=== PATIENT | male | born 1945 | race Hispanic/Latino ===

== ENCOUNTER 2018-02-07 13:42 | Inpatient (IN) | payer MEDICARE, OTHER ==
[2018-02-07 14:32] LABS: #Basophils 0.1 thou/uL (0.0-0.2); #Eosinphils 0.1 thou/uL (0.0-0.7); #Monocytes 0.7 thou/uL (0.11-0.59); #Neutrophils 7.1 thou/uL (1.40-6.50); %Basophils 0.7 % (0.0-1.0); %Eosinophils 1.5 % (0.0-10.0); %Lymphocytes 10.9 % (21.0-51.0); %Monocytes 7.4 % (0.0-10.0); %Neutrophils 79.6 % (42.0-75.0); Hemoglobin 11.3 g/dL (14.0-18.0); Mean Corpuscular Hemoglobin 32.2 pg (27.0-31.0); Mean Corpuscular Volume 97.6 fL (78.0-98.0); Mean Platelet Volume 7.8 fL (7.4-10.4); Platelet Count 241 thou/uL (130-400); RBC Distribution Width 15.3 % (11.5-14.5); White Blood Cell (WBC) Count 8.9 thou/uL (4.8-10.8)
[2018-02-07 14:50] LABS: ALT (SGPT) 17 U/L (8-55); AST (SGOT) 18 U/L (5-34); Alkaline Phosphatase 112 U/L (40-150); Anion Gap 18 mmol/L (10-20); BUN (Urea Nitrogen) 20 mg/dL (8.4-25.7); Bilirubin, Total 0.5 mg/dL (0.2-1.2); Calc. Creatinine Clearance 0 mL/min (70-130); Calcium 9.6 mg/dL (7.8-10.44); Carbon Dioxide 25 mmol/L (23-31); Chloride 100 mmol/L (98-107); Estimated GFR-MDRD 9; Globulin 3.7 g/dL (2.4-3.5); Glucose 193 mg/dL (80-115); Potassium 4.5 mmol/L (3.5-5.1); Protein, Total 7.7 g/dL (5.8-8.1); Sodium 138 mmol/L (136-145)
--- NOTE | 2018-02-07 17:37 | RAD ---
THREE VIEWS OF THE RIGHT GREAT TOE 02/07/18 COMPARISON: None. HISTORY: Diabetes, toe infection. FINDINGS: There is soft tissue swelling at the distal aspect of the great toe. There are foci of subcutaneous g as in this region. In addition, there is cortical bone loss involving the distal aspect of the first distal phalanx suspicious for osteomyelitis. No acute fracture or evidence of dislocation is seen. IMPRESSION: Soft tissue swelling with punctate foci of soft tissue gas along the distal aspect of the great toe c onsistent with gas forming infection. Cortical bone loss involves the distal aspect of the first dist al phalanx evidence of osteomyelitis. Further assessment via contrast enhanced MRI suggested. POS: [facility]
[2018-02-07] MEDS ORDERED: Sodium Chloride 0.9% 100 ML ONE (18:19)
[2018-02-07] MEDS ORDERED: Piperacillin/Tazobactam 3.375 GM VIAL ONE (18:19)
--- NOTE | 2018-02-07 19:27 | RAD ---
CHEST ONE VIEW UPRIGHT PORTABLE: History: 72-year-old male with history of black toe. Patient is diabetic. Right great toe infection. Comparison: 10-11-17 FINDINGS: Post underlying sternotomy. Heart size is normal. The lungs are clear. No pneumonia, edema, or pleura l effusion. IMPRESSION: No acute intrathoracic disease. POS: [facility]
[2018-02-07] MEDS ORDERED: Acetaminophen 650 MG Suppository PR PRN (23:35)
[2018-02-07] MEDS ORDERED: Ondansetron ODT 4 MG TAB PO PRN (23:35)
[2018-02-07] MEDS ORDERED: Ondansetron PF 4 MG/2 ML Vial IVP PRN (23:35)
[2018-02-07] MEDS ORDERED: Loratadine 10 MG TAB PO PRN (23:35)
[2018-02-07] MEDS ORDERED: Acetaminophen 325 MG TAB PO PRN (23:35)
[2018-02-07] MEDS ORDERED: Atorvastatin Calcium 40 MG TAB PO SCH (23:45)
[2018-02-07] MEDS ORDERED: Famotidine 20 MG TAB PO SCH (23:45)
[2018-02-07] MEDS ORDERED: Atorvastatin Calcium 20 MG TAB PO SCH (23:45)
[2018-02-07 23:54] VITALS: BMI 23.1
[2018-02-07] MEDS ORDERED: Metoprolol Tartrate 50 MG TAB PO SCH (23:59)
[2018-02-07] MEDS ORDERED: rOPINIRole HCl 2 MG TAB PO SCH (23:59)
--- NOTE | 2018-02-08 01:54 | HP ---
PRIMARY CARE PHYSICIAN: Dr. Brown at the [facility]. CHIEF COMPLAINT: Bleeding wound on toe. HISTORY OF PRESENT ILLNESS: This is a 72-year-old male with end-stage renal disease, on dialysis, also with longstanding diabetes, who comes in complaining of a lesion to his right great toe. He noted a, what looked like, blood blister. It looked like his toe had been pinched about 4 months ago, though he did not feel any pain or does not remember injuring it. He then noted that his toenail started to come off about 2 months ago, when he pulled that and then the lesion started bleeding and that continued to ooze and bleed after that. He called the [facility] and tried to set up an appointment, but they were unable to give him until the end of February. Then, on Monday of this week, he had some chills sitting in his car, that resolved and then for the last two days, he noticed a black eschar still with continuos bleeding from underneath and at the tip of his right great toe and then his toe started to become tender all over, then today he noticed redness covering his right great toe and then creeping up nursing home up his forefoot, so he called the [facility] and they told him to come into the emergency room. In the ER here, he was noted to have cellulitis and they did an x-ray, which showed possible osteomyelitis of his right great toe tip. Dr. Sanders was consulted for Ortho, and he said that the patient will be given antibiotics and he will see him in the morning. PAST MEDICAL HISTORY: 1. Coronary artery disease. 2. Cardiomyopathy with ejection fraction of 40% to 45%. 3. 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 4. Hypertension. 5. Hyperlipidemia. 6. 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 7. Restless legs syndrome. 8. End-stage renal disease, on dialysis. 9. Episode of atrial fibrillation at the end of last year, resolved with medication, now on oral anticoagulant. PAST SURGICAL HISTORY: 1. Coronary artery bypass grafting x5 vessels in 2011. 2. Cholecystectomy. 3. Partial colectomy for atypical polyp. 4. 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 FAMILY HISTORY: Father had congestive heart failure. Mother had diabetes mellitus. SOCIAL HISTORY: The patient smoked for 16 years, quit in 1976. No history of alcohol or drugs. He is . ALLERGIES: NO KNOWN DRUG ALLERGIES. CURRENT MEDICATIONS: 1. Aspirin 325 mg daily. 2. Renagel 2400 mg three times a day. 3. Lipitor 40 mg daily. 4. Ropinirole 2 mg at bedtime. 5. Glipizide 2.5 mg daily. 6. Vitamin D3 of 1000 units daily. 7. Procardia XL 60 mg daily. 8. Lopressor 50 mg twice a day. 9. Diltiazem CD 120 mg daily. 10. Eliquis 2.5 mg twice a day. 11. Claritin 10 mg daily. REVIEW OF SYSTEMS: CONSTITUTIONAL: See HPI. EYES: No change in his vision in his right eye. ENT: He has chronic congestion noted. No drainage. No sore throat. CARDIOVASCULAR: No chest pain. No palpitations or racing heart. PULMONARY: No coughing, wheezing, or shortness of breath. GASTROINTESTINAL: No abdominal pain. No nausea or vomiting. He has chronic diarrhea since his partial colectomy. GENITOURINARY: Produces very little urine, but no dysuria or hematuria. MUSCULOSKELETAL: See HPI. SKIN: See HPI. No other rashes. NEUROLOGIC: No numbness, tingling, or focal weakness. PHYSICAL EXAMINATION: VITAL SIGNS: Blood pressure 167/70, pulse 79, respirations 16, temperature 98.4, and O2 saturation 96% on room air. GENERAL: This is a well-developed, well-nourished male, in no apparent distress. HEENT: Left eye with absent cornea. Right eye, his pupil is round and reactive to light. Oropharynx clear without lesions, erythema, or exudate. NECK: Supple. No lymphadenopathy. No thyroid nodules or enlargement. HEART: Regular rate and rhythm. No murmurs, rubs, or gallops. LUNGS: Clear to auscultation bilaterally. No wheezes, crackles, or rhonchi. ABDOMEN: Soft, nontender to palpation. Normoactive bowel sounds. No hepatosplenomegaly or other masses. EXTREMITIES: The patient has a large eschar in the superior tip of his right great toe. His nail is missing. The middle of the eschar has an ulcerated area with some bloody mucoid discharge. The eschar is about a quarter size. There is surrounding blanching erythema and warmth going the length of the toe and then spreading up the medial aspect of the forefoot about nursing home up the forefoot. There is mild tenderness to deep tissue palpation of the entire toe. He does have some intact light touch sensation throughout the foot and toes. His dorsalis pedis pulse is weakly palpable. The patient's remainder of the exam is normal except with his AV fistula on his left forearm, which does have a palpable thrill. SKIN: See extremity exam above. No other lesions noted. NEUROLOGIC: Intact sensation in all extremities. Normal reflexes. Normal strength. No facial droop. LABORATORY DATA: CBC with normal white blood cell count, hemoglobin 11, hematocrit 34, and platelet count 241. Complete metabolic panel is notable only for a creatinine of 6.01 and a glucose of 193. His C-reactive protein was elevated at 7.39. I did review the toe x-ray done in the emergency room along with the radiologist's report. It shows soft tissue swelling with punctate foci of soft tissue gas along the distal aspect of the right great toe consistent with gas-forming infection. There is also cortical bone loss at the distal aspect of the first phalanx, evidence of osteomyelitis. I also reviewed the chest x-ray done in the emergency room along with the radiologist's report. This shows no acute intrathoracic disease, just has old sternotomy wires. ASSESSMENT: 1. Diabetic toe infection with likely osteomyelitis. The patient has gotten a dose of vancomycin and Zosyn in the emergency room. We will continue Zosyn and then he can get vancomycin with dialysis. Dr. Sanders has been consulted and will see the patient in the morning. He may end up needing surgical debridement and excision of the infected bone. At this point, he does not have any evidence of sepsis or systemic infection. 2. End-stage renal disease. Dr. Susan Bell will be consulted to continue dialysis in the hospital. 3. Diabetes mellitus, type 2. We will put the patient on fingersticks and insulin sliding scale and also resume his oral hypoglycemics. It appears that since he has had end-stage renal disease, his diabetes control is improved. He does not need a lot of medicines at this time. 4. Coronary artery disease with history of coronary artery bypass grafting. We will continue the patient's aspirin and other heart medications. 5. Hypertension. Resume the patient's antihypertensives. 6. History of paroxysmal atrial fibrillation. We will continue his rate control medications, but we will hold his Eliquis for now in case if the patient needs surgical intervention and that could be resumed depending on Dr. Sanders's evaluation. 7. Code status had been discussed with the patient. He is a full code. Should he be incapacitated, he states that his would be his medical decision maker. Her name is Deepthi Azar. Job ID: [id number]
[2018-02-08] MEDS: Piperacillin/Tazobactam 2.25 GM in Sodium Chloride 0.9% 100 ML IVPB SCH ×2 (05:41→18:20)
[2018-02-08 06:57] LABS: #Eosinphils 0.1 thou/uL (0.0-0.7); #Lymphocytes 1.1 thou/uL (1.20-3.40); #Monocytes 0.7 thou/uL (0.11-0.59); #Neutrophils 6.8 thou/uL (1.40-6.50); %Basophils 0.2 % (0.0-1.0); %Eosinophils 1.7 % (0.0-10.0); %Lymphocytes 12.8 % (21.0-51.0); %Monocytes 7.9 % (0.0-10.0); %Neutrophils 77.4 % (42.0-75.0); Hemoglobin 10.3 g/dL (14.0-18.0); Mean Corpuscular HGB CONC 33.8 g/dL (32.0-36.0); Mean Corpuscular Hemoglobin 32.9 pg (27.0-31.0); Mean Corpuscular Volume 97.4 fL (78.0-98.0); Mean Platelet Volume 7.9 fL (7.4-10.4); Platelet Count 214 thou/uL (130-400); Red Blood Cell (RBC) Count 3.13 mill/uL (4.70-6.10); White Blood Cell (WBC) Count 8.7 thou/uL (4.8-10.8)
[2018-02-08 07:12] LABS: Anion Gap 17 mmol/L (10-20); BUN (Urea Nitrogen) 28 mg/dL (8.4-25.7); Calc. Creatinine Clearance 8 mL/min (70-130); Calcium 8.8 mg/dL (7.8-10.44); Carbon Dioxide 23 mmol/L (23-31); Chloride 100 mmol/L (98-107); Estimated GFR-MDRD 7; Glucose 97 mg/dL (80-115); Potassium 4.6 mmol/L (3.5-5.1); Sodium 135 mmol/L (136-145)
[2018-02-08] MEDS ORDERED: Prevnar 13-Val Conj/PF 0.5 ML SYRINGE IM ONE (09:00)
[2018-02-08] MEDS: Sevelamer Carbonate 800 MG TAB PO SCH ×3 (09:05→18:20)
[2018-02-08] MEDS: NIFEdipine XL 60 MG TAB PO SCH (09:05)
[2018-02-08] MEDS: glipiZIDE 5 MG TAB PO SCH (09:06)
[2018-02-08] MEDS: Metoprolol Tartrate 50 MG TAB PO SCH ×3 (09:06→20:47)
[2018-02-08] MEDS: Aspirin 325 MG TAB PO SCH (09:06)
--- NOTE | 2018-02-08 14:24 | HP ---
HISTORY OF PRESENT ILLNESS: Presley Azar is a 72-year-old male, on dialysis, end-stage renal disease, dialyzing Monday, Monday, and Monday. The patient presents with right great toe wound eschar, that on x-ray shows osteomyelitis of the distal phalanx and gas in the soft tissues. He has cellulitis over the dorsum of his foot. I was consulted this morning to see him. He is admitted last night to the Hospitalist Service. He is a miz-caigpnj-rzwbakmpo diabetic type 2, end-stage renal disease, has a history of coronary artery disease, undergoing bypass surgery several years ago. He has been on dialysis for more than three years, dialyzing using a left [facility] fistula. This was placed at the [facility]. ALLERGIES: NONE. HABITS: Tobacco, none for many years. Alcohol, none for many years. MEDICATIONS: At home he takes; 1. Eliquis 2.5 mg at bedtime. 2. Multivitamins daily. 3. Atorvastatin daily. 4. Aspirin 81 mg daily. 5. Loratadine 10 mg p.r.n. 6. Metoprolol 25 mg b.i.d. 7. Ropinirole 2 mg p.o. at bedtime p.r.n. 8. Glipizide 2.5 mg . 9. Renagel. 10. Procardia. 11. Cardizem CD. Eliquis has been held on admission. PAST SURGICAL HISTORY: Coronary artery bypass grafting several years ago, cardiac stress test at the [facility] last year was normal. Coronary artery bypass grafting five vessels 2011, laparoscopic cholecystectomy, partial colectomy, and atypical polyp surgery. PAST MEDICAL HISTORY: Coronary artery disease, asymptomatic; diabetes mellitus type 2; hypertension; hyperlipidemia; prior stroke in 2013 with left hemiplegia, mostly resolved; restless legs syndrome; end-stage renal disease, on maintenance dialysis, utilizing a left [facility] fistula; history of atrial fibrillation, on anticoagulation oral therapy. PHYSICAL EXAMINATION: VITAL SIGNS: 5 feet, 226 pounds, 23 BMI. HEAD, EARS, EYES, NOSE AND THROAT: Unremarkable. LUNGS: Clear to auscultation. CARDIAC: Regular rate and rhythm without murmur or gallop. ABDOMEN: Soft and nontender. Palpable femoral, popliteal, dorsalis pedis pulses. EXTREMITIES: Right great toe reveals an eschar over the distal tip. He has cellulitis over the great toe extending over the dorsum of the foot up to the ankle. Medications currently, Zosyn. ASSESSMENT AND PLAN: 1. Cellulitis of right foot with osteomyelitis, right great toe, phalanx. Recommend amputation of the right great toe, healing by secondary intention. He will need to be in the hospital free days assuring the cellulitis over the dorsum of his foot resolves. He can receive intravenous antibiotics with dialysis. 2. End-stage renal disease, on dialysis, seen by Dr. Davis. Kaiser fistula, left arm, functional. 3. Coronary artery disease, stable. 4. Anticoagulation for atrial fibrillation. Job ID: [id number]
[2018-02-08] MEDS ORDERED: Midazolam HCl 2 mg/2 ml Vial ONE (14:27)
[2018-02-08] MEDS ORDERED: Acetaminophen 500 MG TAB PO PRN (14:58)
[2018-02-08] MEDS ORDERED: traMADol HCl 50 MG TAB PO PRN ×2 (14:58)
[2018-02-08] MEDS ORDERED: HOLD VANCOMYCIN FOR LEVEL >20 FS SCH (15:15)
[2018-02-08] MEDS ORDERED: Vancomycin HCl 750 MG in Sodium Chloride 0.9% 250 ML 250 ML IVPB SCH (15:15)
[2018-02-08] MEDS ORDERED: Vancomycin HCl 500 MG in Sodium Chloride 0.9% 100 ML IVPB SCH (15:15)
[2018-02-08] MEDS ORDERED: Vancomycin HCl 1 GM in Premix Bag 1 BAG IVPB SCH (15:15)
[2018-02-08] MEDS ORDERED: Vancomycin HCl 250 MG in Sodium Chloride 0.9% 100 ML IVPB SCH (15:15)
[2018-02-08] MEDS ORDERED: Vancomycin HCl 1.25 GM in Sodium Chloride 0.9% 250 ML 250 ML IVPB SCH (16:00)
[2018-02-08] MEDS ORDERED: PROPOFOL 200 MG/20 ML VIAL ONE (19:05)
[2018-02-08] MEDS ORDERED: Ropivacaine 0.5% HCl/PF (150 MG/30 ML VIAL) ONE (19:28)
--- NOTE | 2018-02-08 20:23 | OP ---
DATE OF PROCEDURE: 02/08/2018 PREOPERATIVE DIAGNOSIS: Diabetic infection right great toe with osteomyelitis in distal phalanx with probable peripheral artery disease (palpable popliteal pulse, Dopplerable dorsalis pedis, high ankle non-Dopplerable dorsalis pedis of the dorsum of the foot with weak Dopplerable only posterior tibial pulse). ANESTHESIA: TIVA, regional. DESCRIPTION OF PROCEDURE: The patient was taken to the operating room, where under regional anesthesia and intravenous sedation, right foot was prepared with Betadine and draped in routine fashion. Amputation of the right great toe through the proximal phalanx carried out with a fishmouth incision. Cautery was not utilized, but there was some bleeding in the soft tissues. Toe through the proximal phalanx and mid phalanx amputated with a bone cutter, resecting approximately with rongeurs and irrigated. Connective tissue debrided sharply. Wound Care arrived to place a wound VAC. The patient tolerated the procedure well. Job ID: [id number]
[2018-02-08] MEDS: Atorvastatin Calcium 40 MG TAB PO SCH (20:46)
[2018-02-08] MEDS: Famotidine 20 MG TAB PO SCH (20:46)
[2018-02-08] MEDS: rOPINIRole HCl 2 MG TAB PO SCH (20:47)
[2018-02-08] MEDS ORDERED: Vancomycin HCl 1.5 GM in Sodium Chloride 0.9% 250 ML 300 ML IVPB SCH (21:00)
--- NOTE | 2018-02-08 22:57 | CON ---
DATE OF CONSULTATION: HISTORY OF PRESENT ILLNESS: Mr. Azar is a 72-year-old gentleman who is on chronic renal dialysis with diabetes mellitus, who presented with a right great toe gangrene. He underwent toe amputation by Dr. Richmond this evening. Historically, he has no claudication or rest pain. He was noted at dialysis to have a wound on his toe, which has progressed to where he had gangrene and he came to the emergency department. He has no previous peripheral vascular history. He has no history of abdominal aortic aneurysm. He is status post coronary artery bypass grafting in approximately 5 years ago. PAST MEDICAL HISTORY: 1. Coronary artery disease. 2. Depressed left ventricular ejection fraction of approximately 40%. 3. Diabetes mellitus. 4. Hypertension. 5. Dyslipidemia. 6. End-stage renal disease, on hemodialysis. 7. History of atrial fibrillation that has resolved with medical treatment. PAST SURGICAL HISTORY: 1. Coronary bypass grafting x5 in 2011. 2. Cholecystectomy. 3. Partial colectomy for atypical polyp. 4. Left corneal removal due to diabetes. SOCIAL HISTORY: He quit smoking in 1976. He does not use alcohol or drugs. ALLERGIES: NONE. CURRENT MEDICATIONS: Noted. REVIEW OF SYSTEMS: A 10-point review of systems is performed, is negative except as above. PHYSICAL EXAMINATION: GENERAL: This is a diminutive gentleman, resting comfortably in bed, post right great toe amputation. HEENT: His right sclera is nonicteric. 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 Oropharynx is moist. NECK: Supple without bruit. CHEST: Clear bilaterally. HEART: Rhythm is regular. ABDOMEN: Soft and nontender. EXTREMITIES: He has a dressing on his right foot. VASCULAR: He has palpable radial and femoral pulses bilaterally. On the right, I can get excellent triphasic Doppler signal in the posterior tibial and a biphasic signal in the dorsalis pedis. On the left, he has triphasic dorsalis pedis and posterior tibial artery signals. ASSESSMENT AND PLAN: This is a 72-year-old gentleman, status post right great toe amputation, on hemodialysis with history of diabetes mellitus. He has no previous peripheral vascular history or symptomatology. This is more than likely microscopic disease post cut on his foot and infection. This should be able to heal with local treatment with the level of blood flow that he has into his foot. If he has further problems, please do not hesitate to call us back. Job ID: [id number]
--- NOTE | 2018-02-08 23:20 | CON ---
DATE OF CONSULTATION: CONSULTING PHYSICIAN: Susan Bell MD REQUESTING PHYSICIAN: Dr. Maurice. REASON FOR CONSULTATION: Need for maintenance hemodialysis. IMPRESSION: 1. End-stage renal disease, hemodialysis dependent on Monday, Monday, and Monday. No indication for emergent dialysis. 2. Right great toe osteomyelitis/cellulitis. 3. Diabetes mellitus type 2. PLAN: 1. The patient is to be dialyzed in accordance to his schedule of Monday, Monday, and Monday with ultrafiltration as tolerated by hemodynamics. 2. On broad-spectrum antibiotic treatment per the primary team. 3. Further management will be dependent on the clinical course. HISTORY OF PRESENT ILLNESS: This is a 72-year-old [place] gentleman with end-stage renal disease on a Monday, Monday, and Monday schedule, who presented here because of nonhealing right great toe infection, that imaging studies are highly suggestive of osteomyelitis with resultant neighboring cellulitis. The patient is now being admitted for further management and the need for maintenance hemodialysis necessitated this Renal consultation. PAST MEDICAL HISTORY: Significant for end-stage renal disease, on hemodialysis; coronary artery disease, status post bypass surgery; dyslipidemia; hypertension; diabetes; CVA; and history of atrial fibrillation. MEDICATIONS: Reviewed and as documented on [employer]. ALLERGIES: NO KNOWN DRUG ALLERGIES. FAMILY HISTORY: Not significant related to presenting illness. SOCIAL HISTORY: The patient is , he is [place]. Denies alcohol, tobacco, or illicit drug use. REVIEW OF SYSTEMS: As documented in the body of the history. All other systems were reviewed and found not to be significantly related to the presenting illness. PHYSICAL EXAMINATION: VITAL SIGNS: The patient is noted to be afebrile with a temperature of 98, pulse 73, respiratory rate of 20, O2 saturation of 100% with the blood pressure of 121/44. HEENT: Unremarkable. Moist oral mucosa. NECK: Supple. No conjunctival injection. No icterus. CARDIOVASCULAR: First and second heart sounds were heard. RESPIRATORY: Clear to auscultation. DIGESTIVE: Revealed a benign abdomen with positive bowel sounds. EXTREMITIES: No peripheral edema. SKIN: Showed redness around the dorsum of the foot in keeping with cellulitis. LYMPHATICS: No peripheral lymphadenopathy. SUMMARY: A 72-year-old gentleman with end-stage renal disease, hemodialysis dependent on a Monday, Monday, and Monday schedule, who presented here with nonhealing osteomyelitis. Thank you for this consultation. We will follow with you. Job ID: [id number]
[2018-02-09] MEDS: Piperacillin/Tazobactam 2.25 GM in Sodium Chloride 0.9% 100 ML IVPB SCH ×2 (04:59→17:09)
[2018-02-09] MEDS: Aspirin 325 MG TAB PO SCH (07:53)
[2018-02-09] MEDS: glipiZIDE 5 MG TAB PO SCH (07:57)
[2018-02-09] MEDS: Sevelamer Carbonate 800 MG TAB PO SCH ×3 (07:57→16:35)
[2018-02-09] MEDS: NIFEdipine XL 60 MG TAB PO SCH (07:58)
[2018-02-09] MEDS: Metoprolol Tartrate 50 MG TAB PO SCH ×2 (07:58→20:34)
[2018-02-09 11:32] LABS: Vancomycin, Random 23.3 ug/mL (See Comment)
--- NOTE | 2018-02-09 14:49 | PDOC.PN ---
- Subjective Encounter Start Date: 02/09/18 Encounter Start Time: 14:45 Subjective: f/u s/p amputation of R great toe POD #1 on current Zosyn and sliding -: scale Vancomycin. Minimal pain currently. Tolerated HD today. - Objective Resuscitation Status - Order Detail: 02/07/18 19:24 Resuscitation Status Routine Resuscitation Status: FULL: Full Resuscitation Discussed with: Patient DONYA Reviewed: Yes Vital Signs & Weight: Vital Signs (12 hours) Temp Pulse Resp BP Pulse Ox 02/09/18 08:00 98 02/09/18 07:58 76 02/09/18 07:15 98.8 F 76 18 152/54 H 98 02/09/18 04:00 99.7 F H 73 16 145/55 H 91 L Weight Admit Weight 126 lb 8 oz Weight 126 lb 8 oz I&O: 02/08/18 02/09/18 02/10/18 06:59 06:59 06:59 Intake Total 870 240 Balance 870 240 Result Diagrams: 02/08/18 06:14 02/08/18 06:14 Additional Labs: Accuchecks 02/09/18 02/08/18 02/08/18 04:44 19:26 16:56 POC Glucose 163 H 137 H 98 Microbiology 02/08/18 15:05 Toe - Right Bacterial Culture - Preliminary 02/08/18 15:05 Toe - Right Streptococcus agalactiae Gp. B Gram Negative Neville 02/07/18 18:03 Venous blood - Right Arm Blood Culture - Preliminary NO GROWTH AT 48 HOURS 02/07/18 17:47 Venous blood - Right Arm Blood Culture - Preliminary NO GROWTH AT 48 HOURS Laboratory Tests 02/07/18 02/08/18 02/09/18 14:13 06:14 10:43 WBC 8.9 Neutrophils % 79.6 H 77.4 H Random Vancomycin 23.3 Phys Exam - Physical Examination Constitutional: NAD HEENT: PERRLA, sclera anicteric, oral pharynx no lesions Neck: no nodes, no JVD, supple, full ROM Respiratory: no wheezing, no rales, no rhonchi, clear to auscultation bilateral S1, S2 Cardiovascular: RRR, no significant murmur, no rub, gallop Gastrointestinal: soft, non-tender, no distention, positive bowel sounds R foot with surgical dressing in place, wound vac in place Musculoskeletal: pulses present, edema present Neurological: normal sensation, moves all 4 limbs Psychiatric: A&O x 3 Skin: normal turgor, cap refill <2 seconds Dx/Plan (1) Acute osteomyelitis of toe of right foot Code(s): M86.171 - OTHER ACUTE OSTEOMYELITIS, RIGHT ANKLE AND FOOT Status: Acute Comment: s/p amputation of R great toe POD #1, continue Vanc/Zosyn, wound vac for local care (2) DM II (diabetes mellitus, type II), controlled Code(s): E11.9 - TYPE 2 DIABETES MELLITUS WITHOUT COMPLICATIONS Status: Chronic Comment: ISS, Glipizide 2.5mg daily, ADA (3) CAD (coronary artery disease) Code(s): I25.10 - ATHSCL HEART DISEASE OF [place] CORONARY ARTERY W/O ANG PCTRS Status: Chronic Comment: Chronic, stable, continue ASA, Metoprolol and Lipitor (4) ESRD (end stage renal disease) on dialysis Code(s): N18.6 - END STAGE RENAL DISEASE; Z99.2 - DEPENDENCE ON RENAL DIALYSIS Status: Chronic Comment: HD per Renal service - Plan plan discussed w/ family, continue antibiotics, PT/OT, case management social worker, out of bed/ambulate Stable currently -: WCT for local care and wound vac mgmt -: Continue Zosyn/Vancomycin -: HD per Renal service -: Pain control as clinically indicated * .
[2018-02-09] MEDS: Famotidine 20 MG TAB PO SCH (20:34)
[2018-02-09] MEDS: Atorvastatin Calcium 40 MG TAB PO SCH (20:34)
[2018-02-09] MEDS: rOPINIRole HCl 2 MG TAB PO SCH (20:35)
--- NOTE | 2018-02-09 20:35 | PRG ---
DATE OF SERVICE: 02/09/2018 SUBJECTIVE: The patient is seen and examined. Noted with the following vital signs. OBJECTIVE: VITAL SIGNS: Afebrile. Temperature 98.8, pulse 75, respiratory rate of 16, O2 saturation of 98%, and blood pressure 149/58. HEENT: Unremarkable. CARDIOVASCULAR SYSTEM: First and second heart sounds were heard. RESPIRATORY SYSTEM: Clear to auscultation. DIGESTIVE SYSTEM: Revealed a benign abdomen. EXTREMITIES: No peripheral edema. SKIN: No new gross rash. LYMPHATICS: No peripheral lymphadenopathy. IMPRESSION: 1. End-stage renal disease, on hemodialysis. 2. Osteomyelitis, status post toe amputation. 3. Dysphagia, undergoing workup. PLAN: 1. The patient is to continue with hemodialysis per his schedule of Monday, Monday, and Monday. 2. Further management will be dependent on the clinical course. Job ID: [id number]
--- NOTE | 2018-02-09 20:46 | CON ---
DATE OF CONSULTATION: 02/09/2018 CHIEF COMPLAINT: Trouble swallowing. HISTORY OF PRESENT ILLNESS: Mr. Azar is a 72-year-old man, who was admitted with a gangrenous toe related to his diabetes. He underwent amputation for that. GI was consulted because he has had chronic dysphagia. He was eating when I walked in the room. He is coughing frequently. He complains of dysphagia to solid foods at the lower substernal region. Solid food will get stuck a couple of times that he has to vomit it back up. Every day, though he has to chew very well and balwinder each bite with water. This pills do get hung up temporarily frequently. He has had no nausea or vomiting. No abdominal pain. No constipation or blood in the stool. He has some underlying chronic diarrhea. He has 1 or 2 bowel movements per day, usually that are watery. This has been going on ever since he had a partial colectomy for a large colon polyp a few years ago. He had a followup colonoscopy by Dr. Woodson, around 3 years ago and he states that he is due for followup colonoscopy again. He has been followed by the [place], and the [place] has approved for Dr. Woodson to do that procedure. He is working on scheduling that. He has had no recent weight loss. No chest pain or shortness of breath. PAST MEDICAL HISTORY: Diabetes mellitus, coronary artery disease, cardiomyopathy with ejection fraction of 40% to 45%, hypertension, hyperlipidemia, history of stroke, restless legs syndrome, and end-stage renal disease on dialysis. PAST SURGICAL HISTORY: Coronary artery bypass graft, cholecystectomy, partial colectomy, and eye surgery. FAMILY HISTORY: Negative for GI malignancy. SOCIAL HISTORY: He quit smoking in 1976. No alcohol or drugs. ALLERGIES: NO KNOWN DRUG ALLERGIES. MEDICATIONS: 1. Aspirin. 2. Atorvastatin. 3. Diltiazem. 4. Famotidine 20 mg daily. 5. Glipizide. 6. Metoprolol. 7. Zosyn. 8. Ropinirole. 9. Sevelamer. 10. Vancomycin. 11. He has been on Eliquis at home, but is not on medication here in the hospital currently. REVIEW OF SYSTEMS: Negative x10 systems reviewed except as stated in history of present illness. PHYSICAL EXAMINATION: VITAL SIGNS: Temperature 99.7, pulse 73, and blood pressure 145/55. GENERAL: He is in no acute distress. Alert and oriented x3. HEENT: His right eye has no scleral icterus. Oropharynx is clear without lesions. No cervical or supraclavicular lymphadenopathy. LUNGS: Clear to auscultation bilaterally. HEART: Regular rate and rhythm without murmur. ABDOMEN: Soft, nontender, and nondistended. Bowel sounds are present. EXTREMITIES: No lower extremity edema. LABORATORY DATA: White blood cell count 8.7, hemoglobin 10.3, platelets 214. Creatinine 7.34. Bilirubin 0.5, AST 18, ALT 17, alkaline phosphatase 112, and albumin 4.0. IMPRESSION: 1. Esophageal dysphagia with food getting stuck at the lower substernal region. He could have an esophageal stricture from chronic reflux. He only gets typical heartburn once every couple of weeks to a couple of times per week. These symptoms have been present over the last 3 or 4 years. Rule out neoplastic process. Achalasia is a consideration. 2. Oropharyngeal dysphagia. He does get frequent coughing when he eats. We will start with evaluating for an esophageal stricture first, however, follow up with speech pathology for a swallowing assessment would also be indicated. 3. History of colon polyp, requiring partial colectomy. He has been followed by Dr. Woodson and plans to schedule followup colonoscopy with him for surveillance. He has already eaten lunch today, and we will address him more immediate issue with the dysphagia currently. RECOMMENDATIONS: 1. EGD tomorrow morning. 2. Speech path evaluation after that if the endoscopy is negative. 3. Also if the endoscopy is negative, then barium esophagogram or manometry could be considered. 4. Follow up with Dr. Woodson for routine surveillance for the colon polyp and also followup of the chronic diarrhea that he has had since his colon resection. Job ID: [id number]
--- NOTE | 2018-02-10 01:18 | HP ---
Mr. Azar is doing well. He has wound VAC on his foot for amputation of his toe. He should continue intravenous antibiotics for now. We will plan to review the wound on Monday during dressing changes. Likely, he will be able to be discharged home on antibiotics by mouth. He does not need outpatient intravenous antibiotics from his foot standpoint. He will need outpatient wound VAC care and he will need to follow up in my office in 2 to 3 weeks after discharge. He should be on oral antibiotics for about 10 days post discharge. Cultures obtained in the OR from the foot wound revealed gram-negative rods and gram-positive coccus and streptococcus. We will await identification and adjust oral antibiotics on discharge. He had blood cultures negative to date. Job ID: [id number]
[2018-02-10] MEDS: Piperacillin/Tazobactam 2.25 GM in Sodium Chloride 0.9% 100 ML IVPB SCH ×2 (05:40→17:09)
[2018-02-10] MEDS: Metoprolol Tartrate 50 MG TAB PO SCH ×2 (06:36→20:19)
[2018-02-10] MEDS: Sevelamer Carbonate 800 MG TAB PO SCH ×3 (08:02→17:09)
[2018-02-10] MEDS: glipiZIDE 5 MG TAB PO SCH (08:02)
[2018-02-10] MEDS: Aspirin 325 MG TAB PO SCH ×2 (08:02→10:49)
[2018-02-10] MEDS: NIFEdipine XL 60 MG TAB PO SCH ×2 (08:03→10:48)
[2018-02-10] MEDS ORDERED: Midazolam HCl 2 mg/2 ml Vial ONE (08:36)
[2018-02-10] MEDS ORDERED: Promethazine HCl 25 MG/ML VIAL IM PRN (08:49)
[2018-02-10] MEDS ORDERED: Promethazine HCl 25 MG/ML VIAL SLOW IVP PRN (08:49)
[2018-02-10] MEDS ORDERED: Ondansetron HCl/PF 4 MG/2 ML Vial IVP PRN (08:49)
[2018-02-10] MEDS ORDERED: PROPOFOL 200 MG/20 ML VIAL ONE (09:19)
[2018-02-10] MEDS: HYDROcodone/Acetaminophen 5/325 mg Tablet PO PRN (13:05)
--- NOTE | 2018-02-10 13:37 | PDOC.PN ---
- Subjective Encounter Start Date: 02/10/18 Encounter Start Time: 13:30 Subjective: f/u for R great toe amputation POD #2. Receiving Vanc/Zosyn and wound -: vac application. Ambulating with PT in halls. Pain controlled. - Objective Resuscitation Status - Order Detail: 02/07/18 19:24 Resuscitation Status Routine Resuscitation Status: FULL: Full Resuscitation Discussed with: Patient MAR Reviewed: Yes Vital Signs & Weight: Vital Signs (12 hours) Temp Pulse Resp BP BP BP BP 02/10/18 11:46 98.5 F 70 18 138/50 L 02/10/18 10:49 70 02/10/18 10:48 70 148/51 H 02/10/18 09:10 98.2 F 65 16 148/51 H 02/10/18 08:03 68 02/10/18 08:00 02/10/18 07:15 98.5 F 68 16 147/56 H 02/10/18 06:29 74 149/63 H 02/10/18 04:30 98.6 F 70 14 130/45 L Pulse Ox 02/10/18 11:46 97 02/10/18 10:49 02/10/18 10:48 02/10/18 09:10 96 02/10/18 08:03 02/10/18 08:00 97 02/10/18 07:15 97 02/10/18 06:29 02/10/18 04:30 95 Weight Admit Weight 126 lb 8 oz Weight 126 lb 8 oz I&O: 02/09/18 02/10/18 02/11/18 06:59 06:59 06:59 Intake Total 870 480 Balance 870 480 Result Diagrams: 02/08/18 06:14 02/08/18 06:14 Additional Labs: Accuchecks 02/10/18 02/10/18 02/09/18 11:43 06:03 19:48 POC Glucose 139 H 166 H 162 H 02/09/18 17:14 POC Glucose 180 H Microbiology 02/08/18 15:05 Toe - Right Bacterial Culture - Preliminary 02/08/18 15:05 Toe - Right Streptococcus agalactiae Gp. B Pseudomonas aeruginosa 02/08/18 15:05 Toe - Right Bacterial Culture - Preliminary 02/08/18 15:05 Toe - Right Streptococcus agalactiae Gp. B Gram Negative Neville 02/07/18 18:03 Venous blood - Right Arm Blood Culture - Preliminary NO GROWTH AT 48 HOURS 02/07/18 17:47 Venous blood - Right Arm Blood Culture - Preliminary NO GROWTH AT 48 HOURS Laboratory Tests 02/07/18 02/08/18 02/09/18 14:13 06:14 10:43 WBC 8.9 Neutrophils % 79.6 H 77.4 H Random Vancomycin 23.3 Phys Exam - Physical Examination Constitutional: NAD HEENT: PERRLA, sclera anicteric, oral pharynx no lesions Neck: no nodes, no JVD, supple, full ROM Respiratory: no wheezing, no rales, no rhonchi, clear to auscultation bilateral S1, S2 Cardiovascular: RRR, no significant murmur, no rub, gallop Gastrointestinal: soft, non-tender, no distention, positive bowel sounds R foot with wound vac/surgical dressing in place Musculoskeletal: pulses present, edema present Neurological: normal sensation, moves all 4 limbs Psychiatric: A&O x 3 Skin: normal turgor, cap refill <2 seconds Dx/Plan (1) Acute osteomyelitis of toe of right foot Code(s): M86.171 - OTHER ACUTE OSTEOMYELITIS, RIGHT ANKLE AND FOOT Status: Acute Comment: s/p amputation of R great toe POD #2, continue Vanc/Zosyn, wound vac for local care (2) DM II (diabetes mellitus, type II), controlled Code(s): E11.9 - TYPE 2 DIABETES MELLITUS WITHOUT COMPLICATIONS Status: Chronic Comment: ISS, Glipizide 2.5mg daily, ADA (3) CAD (coronary artery disease) Code(s): I25.10 - ATHSCL HEART DISEASE OF [place] CORONARY ARTERY W/O ANG PCTRS Status: Chronic Comment: Chronic, stable, continue ASA, Metoprolol and Lipitor (4) ESRD (end stage renal disease) on dialysis Code(s): N18.6 - END STAGE RENAL DISEASE; Z99.2 - DEPENDENCE ON RENAL DIALYSIS Status: Chronic Comment: HD per Renal service (5) Dysphagia Code(s): R13.10 - DYSPHAGIA, UNSPECIFIED Status: Chronic Comment: EGD completed with esophageal stricture and dilation, continue PPI - Plan continue antibiotics, PT/OT, social work assistant, out of bed/ambulate Stable overall -: Continue Vanc sliding scale with HD -: Continue Zosyn -: WCT for local care and wound vac mgmt -: Likely home in 48h * .
--- NOTE | 2018-02-10 14:41 | OP ---
DATE OF PROCEDURE: 02/10/2018 PROCEDURES PERFORMED: Esophagogastroduodenoscopy with esophageal dilation over guidewire. PREOPERATIVE DIAGNOSIS: Esophageal dysphagia. DESCRIPTION OF PROCEDURE: Informed consent was obtained from the patient. He was sedated with total intravenous anesthesia. The bite block was placed and the endoscope was advanced easily to the second portion of the duodenum and retroflexion was performed in the stomach. The esophagus had a moderately tight stricture in the distal esophagus just above the GE junction. This was dilated to 18 mm with a Savary dilator over a guidewire. No obvious stricture was seen in the proximal esophagus to explain the frequent coughing with swallow. This area was also dilated with the dilator, however. There was a 3-cm hiatal hernia present. The stomach was somewhat congested, but no focal gastritis or ulcers were present. Retroflex views in the stomach were otherwise unremarkable. The pylorus and first and second portions of the duodenum were normal. IMPRESSION: 1. Distal esophageal stricture, dilated to 18 mm with an appropriate tear at the dilation site with good effect. 2. 3-cm hiatal hernia. 3. Otherwise unremarkable EGD. 4. The coughing with his eating may indicate more of an oropharyngeal dysphagia in addition. We will see how he does with dilation of the entire esophagus, which was performed today. In the meantime, I will request a speech pathology evaluation as well. RECOMMENDATIONS: 1. Proton pump inhibitor daily. 2. Speech pathology evaluation. 3. I will sign off. Please call if GI can be of assistance. Job ID: [id number]
[2018-02-10] MEDS ORDERED: glipiZIDE 5 MG TAB PO SCH (17:30)
[2018-02-10] MEDS: rOPINIRole HCl 2 MG TAB PO SCH (20:19)
[2018-02-10] MEDS: Atorvastatin Calcium 40 MG TAB PO SCH (20:19)
[2018-02-10] MEDS: Famotidine 20 MG TAB PO SCH (20:19)
[2018-02-11] MEDS: Piperacillin/Tazobactam 2.25 GM in Sodium Chloride 0.9% 100 ML IVPB SCH ×2 (05:49→17:09)
[2018-02-11] MEDS: NIFEdipine XL 60 MG TAB PO SCH (08:01)
[2018-02-11] MEDS: Sevelamer Carbonate 800 MG TAB PO SCH ×3 (08:01→17:09)
[2018-02-11] MEDS: Aspirin 325 MG TAB PO SCH (08:02)
[2018-02-11] MEDS: glipiZIDE 5 MG TAB PO SCH (08:02)
[2018-02-11] MEDS: Metoprolol Tartrate 25 MG TAB PO SCH ×2 (08:02→20:42)
--- NOTE | 2018-02-11 15:41 | PDOC.PN ---
- Subjective Encounter Start Date: 02/11/18 Encounter Start Time: 15:39 Subjective: no new complaints. says leg hurts when wound vac is taken off - Objective Resuscitation Status - Order Detail: 02/07/18 19:24 Resuscitation Status Routine Resuscitation Status: FULL: Full Resuscitation Discussed with: Patient DONYA Reviewed: Yes Vital Signs & Weight: Vital Signs (12 hours) Temp Pulse Resp BP BP BP Pulse Ox 02/11/18 08:01 78 168/73 H 02/11/18 07:45 96 02/11/18 07:32 99.0 F 78 18 168/63 H 96 02/11/18 05:33 99.5 F 84 16 148/55 H 91 L Weight Admit Weight 126 lb 8 oz Weight 126 lb 8 oz I&O: 02/10/18 02/11/18 02/12/18 06:59 06:59 06:59 Intake Total 480 700 Balance 480 700 Result Diagrams: 02/08/18 06:14 02/08/18 06:14 Additional Labs: Accuchecks 02/11/18 02/11/18 02/10/18 11:19 04:57 19:33 POC Glucose 100 171 H 233 H 02/10/18 16:31 POC Glucose 231 H Microbiology 02/08/18 15:05 Toe - Right Bacterial Culture - Preliminary 02/08/18 15:05 Toe - Right Anaerobic Culture - Preliminary Streptococcus agalactiae Gp. B Pseudomonas aeruginosa 02/07/18 18:03 Venous blood - Right Arm Blood Culture - Preliminary NO GROWTH AT 48 HOURS 02/07/18 17:47 Venous blood - Right Arm Blood Culture - Preliminary NO GROWTH AT 48 HOURS Phys Exam - Physical Examination Constitutional: NAD HEENT: PERRLA, moist MMs, sclera anicteric, oral pharynx no lesions Neck: no nodes, no JVD, supple, full ROM Respiratory: no wheezing, no rales, no rhonchi, clear to auscultation bilateral Cardiovascular: RRR, no significant murmur, no rub Gastrointestinal: soft, non-tender, no distention, positive bowel sounds Musculoskeletal: no edema, pulses present wound vac on R foot Neurological: non-focal, normal sensation, moves all 4 limbs Psychiatric: normal affect, A&O x 3 Skin: no rash Dx/Plan (1) Acute osteomyelitis of toe of right foot Code(s): M86.171 - OTHER ACUTE OSTEOMYELITIS, RIGHT ANKLE AND FOOT Status: Acute Comment: s/p amputation of R great toe POD #3, continue Vanc/Zosyn, wound vac for local care (2) DM II (diabetes mellitus, type II), controlled Code(s): E11.9 - TYPE 2 DIABETES MELLITUS WITHOUT COMPLICATIONS Status: Chronic Comment: ISS, Glipizide 2.5mg daily, ADA (3) Dysphagia Code(s): R13.10 - DYSPHAGIA, UNSPECIFIED Status: Chronic Comment: EGD completed with esophageal stricture and dilation, continue PPI (4) Diabetes mellitus Code(s): E11.9 - TYPE 2 DIABETES MELLITUS WITHOUT COMPLICATIONS Status: Acute Comment: Very well controlled. (5) Hyperlipidemia Code(s): E78.5 - HYPERLIPIDEMIA, UNSPECIFIED Status: Acute (6) Hypotension Status: Acute Comment: Per nephrology recommendations for HD. (7) CAD (coronary artery disease) Code(s): I25.10 - ATHSCL HEART DISEASE OF [place] CORONARY ARTERY W/O ANG PCTRS Status: Chronic Comment: Chronic, stable, continue ASA, Metoprolol and Lipitor (8) ESRD (end stage renal disease) on dialysis Code(s): N18.6 - END STAGE RENAL DISEASE; Z99.2 - DEPENDENCE ON RENAL DIALYSIS Status: Chronic Comment: HD per Renal service (9) Chronic atrial fibrillation Code(s): I48.2 - CHRONIC ATRIAL FIBRILLATION Status: Chronic - Plan plan discussed w/ family, continue antibiotics, PT/OT, incentive spirometry, out of bed/ambulate, DVT proph w/SCDs cont wound vac and empiric Broad spectrum IV ABx -: Cx shows pseudomonas & Strept.sensitive to po ABx -: kassandra MANRIQUEZ home i am w PO Abx .wound vac per GS -: HD stable -: cont home meds as below.ISS & Accuchecks * . Review of Systems - Review of Systems Constitutional: negative: fever, chills, sweats, weakness, malaise, other Respiratory: negative: Cough, Dry, Shortness of Breath, Hemoptysis, SOB with Excertion, Pleuritic Pain, Sputum, Wheezing Cardiovascular: negative: chest pain, palpitations, orthopnea, paroxysmal nocturnal dyspnea, edema, light headedness, other Gastrointestinal: negative: Nausea, Vomiting, Abdominal Pain, Diarrhea, Constipation, Melena, Hematochezia, Other Genitourinary: negative: Dysuria, Frequency, Incontinence, Hematuria, Retention , Other Musculoskeletal: Foot Pain. negative: Neck Pain, Shoulder Pain, Arm Pain, Back Pain, Hand Pain, Leg Pain, Other Neurological: negative: Weakness, Numbness, Incoordination, Change in Speech, Confusion, Seizures, Other - Medications/Allergies Allergies/Adverse Reactions: Allergies Allergy/AdvReac Type Severity Reaction Status Date / Time No Known Drug Allergies Allergy Verified 01/07/13 20:20 Medications: Current Medications Acetaminophen (Tylenol) 650 mg [place] Q4H PRN PRN Reason: Headache/Fever/Mild Pain (1-3) Acetaminophen (Tylenol) 1,000 mg PO Q6H PRN PRN Reason: Mild Pain (1-3) Hydrocodone Bitart/Acetaminophen (Sidney 5/325) 1 tab PO Q4H PRN PRN Reason: Moderate Pain (4-6) Last Admin: 02/10/18 13:05 Dose: 1 tab Aspirin (Aspirin) 325 mg PO [facility] Last Admin: 02/11/18 08:02 Dose: 325 mg Atorvastatin Calcium (Lipitor) 40 mg PO HS [facility] Last Admin: 02/10/18 20:19 Dose: 40 mg Cholecalciferol (Vitamin D3) 3,000 units PO DAILY [facility] Last Admin: 02/11/18 08:01 Dose: 3,000 units Diltiazem HCl (Cardizem Cd) 120 mg PO DAILY [facility] Last Admin: 02/11/18 08:01 Dose: 120 mg Famotidine (Pepcid) 20 mg PO Q24HR [facility] Last Admin: 02/10/18 20:19 Dose: 20 mg Glipizide (Glucotrol) 2.5 mg PO [facility] Last Admin: 02/11/18 08:02 Dose: 2.5 mg Piperacillin Sod/Tazobactam (Sod 2.25 gm/ Sodium Chloride) 100 mls @ 200 mls/ hr IVPB 0600,1800 [facility] Last Admin: 02/11/18 05:49 Dose: 100 mls Vancomycin HCl 1 gm/ Device 200 mls @ 200 mls/hr IVPB WILLCALL [facility] Vancomycin HCl 750 mg/ Sodium (Chloride) 250 mls @ 250 mls/hr IVPB [facility] Vancomycin HCl 500 mg/ Sodium (Chloride) 100 mls @ 100 mls/hr IVPB [facility] Vancomycin HCl 250 mg/ Sodium (Chloride) 100 mls @ 100 mls/hr IVPB [facility] Loratadine (Claritin) 10 mg PO DAILY PRN PRN Reason: Allergies Last Admin: 02/11/18 05:48 Dose: 10 mg Metoprolol Tartrate (Lopressor) 25 mg PO BID [facility] Last Admin: 02/11/18 08:02 Dose: 25 mg Miscellaneous Medication (Pharmacy To Dose) 1 each IVPB PRN PRN PRN Reason: Pharmacy to dose Nifedipine (Procardia Xl) 60 mg PO DAILY [facility] Last Admin: 02/11/18 08:01 Dose: 60 mg Hold Vancomycin For (Level >20) 0 each FS .AT DIALYSIS [facility] Ondansetron HCl (Zofran Odt) 4 mg PO Q6H PRN PRN Reason: Nausea/Vomiting Ondansetron HCl (Zofran) 4 mg IVP Q6H PRN PRN Reason: Nausea/Vomiting Ropinirole HCl (Requip) 2 mg PO HS [facility] Last Admin: 02/10/18 20:19 Dose: 2 mg Sevelamer Carbonate (Renvela) 2,400 mg PO TID-WM [facility] Last Admin: 02/11/18 12:21 Dose: 2,400 mg Tramadol HCl (Ultram) 50 mg PO Q6H PRN PRN Reason: Moderate Pain (4-6) Tramadol HCl (Ultram) 100 mg PO Q6H PRN PRN Reason: Severe Pain (7-10)
[2018-02-11] MEDS ORDERED: HumaLOG 300 UNITS/3 ML VIAL SC PRN ×2 (16:36)
[2018-02-11] MEDS ORDERED: Dextrose 50% Abboject 50 ML SYRINGE SLOW IVP PRN (16:36)
[2018-02-11] MEDS ORDERED: Dextrose 5% in Water 1,000 ML IV PRN (16:36)
[2018-02-11] MEDS: Famotidine 20 MG TAB PO SCH (20:41)
[2018-02-11] MEDS: rOPINIRole HCl 2 MG TAB PO SCH (20:41)
[2018-02-11] MEDS: Atorvastatin Calcium 40 MG TAB PO SCH (20:42)
[2018-02-11 21:23] VITALS: TEMP 99.3
[2018-02-12] MEDS: Piperacillin/Tazobactam 2.25 GM in Sodium Chloride 0.9% 100 ML IVPB SCH (06:24)
[2018-02-12] MEDS ORDERED: Ciprofloxacin 500 MG TAB PO SCH ×2 (08:30→20:00)
[2018-02-12 10:08] LABS: Vancomycin, Random 17.9 ug/mL (See Comment)
[2018-02-12] MEDS: Sevelamer Carbonate 800 MG TAB PO SCH ×2 (10:34→13:10)
[2018-02-12] MEDS: glipiZIDE 5 MG TAB PO SCH (11:54)
[2018-02-12] MEDS: Metoprolol Tartrate 25 MG TAB PO SCH ×2 (11:57→13:12)
[2018-02-12] MEDS: NIFEdipine XL 60 MG TAB PO SCH ×2 (11:57→13:12)
[2018-02-12] MEDS ORDERED: Vancomycin HCl 250 MG in Sodium Chloride 0.9% 100 ML IVPB SCH (12:00)
[2018-02-12] MEDS ORDERED: Cephalexin 250 MG CAP PO SCH (12:00)
[2018-02-12] MEDS: Aspirin 325 MG TAB PO SCH (13:11)
[2018-02-12 13:15] VITALS: BP 167/55
[2018-02-12] MEDS: HYDROcodone/Acetaminophen 5/325 mg Tablet PO PRN (13:50)
--- NOTE | 2018-02-12 15:04 | DIS ---
DATE OF ADMISSION: 02/07/2018 DATE OF DISCHARGE: 02/12/2018 PRIMARY CARE PHYSICIAN: ANDREA. DISCHARGE DIAGNOSES: 1. Diabetic foot infection with osteomyelitis of the hallux. 2. Diabetes mellitus type 2 with neurologic and with peripheral neuropathy and peripheral vascular disease. 3. End-stage renal disease, on hemodialysis. 4. History of atherosclerotic coronary artery disease without angina. 5. History of dysphagia. CONSULTATIONS: 1. General Surgery, Riley Richmond MD. 2. Nephrology, Susan Bell MD. HISTORY AND PHYSICAL: Mr. Azar is a 72-year-old gentleman, presented to the Emergency Department for infected toe. We were called for admission. HOSPITAL COURSE: The patient was seen and examined by Dr. Bob Echavarria. The patient was placed in the inpatient status. Dr. Richmond was consulted. The patient was seen by Dr. Richmond the next morning and taken to the operating room the same day for partial first ray amputation. Wound VAC closure was placed. The patient did well. He did well through 02/09/2018. Received vancomycin and Zosyn pending cultures. He was seen by Dr. Kirkland in consultation by Gastroenterology on 02/09/2018, for difficulty swallowing and on 02/10/2018, underwent esophagogastroduodenoscopy. The patient was found to have distal esophageal stricture and underwent esophageal dilation over guidewire with good success and did well. From 02/10 through 02/12, the patient improved. His wound VAC was changed today after completing hemodialysis. He subsequently was stable for discharge with outpatient followup. PHYSICAL EXAMINATION: The patient was seen and examined on the day of discharge. Discharge plan and disposition were discussed with the patient [id number] at the bedside. DISCHARGE MEDICATIONS: New medications; 1. Keflex 500 mg p.o. q.6 hours. 2. Ciprofloxacin 500 mg p.o. b.i.d. Home medications to continue. Please see the medicine discharge reconciliation sheet. DISCHARGE ACTIVITY: As tolerated. DISCHARGE DIET: Heart healthy, diabetic, and renal diet recommended. DISCHARGE CONDITION: Stable. DISPOSITION: Discharged home via private vehicle. FOLLOWUP APPOINTMENTS: 1. Primary care physician within a week. 2. Dr. Richmond in 2 to [address] Davis per his clinic. Job ID: [id number]
== END 2018-02-12 15:16 | disposition home or self-care (01) | DRG 617 ==
LOC: ERS 13:42 → T4-A 18:02
PROVIDERS: ADMIT Emergency Medicine; ATTEND Emergency Medicine
PROC: 0Y6P0Z1 Detachment at Right 1st Toe, High, Open Approach (ICD-10-PCS; principal; 2018-02-08)
PROC: 0D738ZZ Dilation of Lower Esophagus, Via Natural or Artificial Opening Endoscopic (ICD-10-PCS; 2018-02-10)
PROC: 5A1D70Z Performance of Urinary Filtration, Intermittent, Less than 6 Hours Per Day (ICD-10-PCS; 2018-02-12)
DX: E11.69 Type 2 diabetes mellitus with other specified complication (principal); M86.171 Other acute osteomyelitis, right ankle and foot; I12.0 Hypertensive chronic kidney disease with stage 5 chronic kidney disease or end stage renal disease; I69.354 Hemiplegia and hemiparesis following cerebral infarction affecting left non-dominant side; I42.9 Cardiomyopathy, unspecified; E11.52 Type 2 diabetes mellitus with diabetic peripheral angiopathy with gangrene; E11.22 Type 2 diabetes mellitus with diabetic chronic kidney disease; R13.12 Dysphagia, oropharyngeal phase; N18.6 End stage renal disease; K22.2 Esophageal obstruction; B95.5 Unspecified streptococcus as the cause of diseases classified elsewhere; Z99.2 Dependence on renal dialysis; K44.9 Diaphragmatic hernia without obstruction or gangrene; I48.2 Chronic atrial fibrillation; I25.10 Atherosclerotic heart disease of native coronary artery without angina pectoris; E11.319 Type 2 diabetes mellitus with unspecified diabetic retinopathy without macular edema; K21.9 Gastro-esophageal reflux disease without esophagitis; E11.42 Type 2 diabetes mellitus with diabetic polyneuropathy; E78.5 Hyperlipidemia, unspecified; G25.81 Restless legs syndrome; Z90.49 Acquired absence of other specified parts of digestive tract; Z79.01 Long term (current) use of anticoagulants; Z95.1 Presence of aortocoronary bypass graft; Z87.891 Personal history of nicotine dependence; Z79.84 Long term (current) use of oral hypoglycemic drugs; Z79.82 Long term (current) use of aspirin
CPT/HCPCS: 36415; 36416; 71045; 80048; 80053; 80202; 85025; 85652; 86140; 87040; 87070; 87077; 87186; 87205; 88305; 93005; 96365; 96367; J2250; J2543; J2704; J2795; J3370; J7050

== ENCOUNTER 2018-02-14 13:28 | Outpatient (CLI) | payer MEDICARE, OTHER | END 2018-02-14 13:29 | disposition home or self-care (01) | LOC: WCC 13:28 | PROVIDERS: ATTEND Family Medicine | DX: T81.89XD Other complications of procedures, not elsewhere classified, subsequent encounter (principal); Z89.411 Acquired absence of right great toe | CPT/HCPCS: 97605 ==

== ENCOUNTER 2018-02-16 13:49 | Outpatient (CLI) | payer MEDICARE, OTHER ==
[2018-02-16] MEDS ORDERED: Sodium Chloride 0.9% 15 ML NEB ONE (13:53)
== END 2018-02-16 13:50 | disposition home or self-care (01) ==
LOC: WCC 13:49
PROVIDERS: ATTEND Family Medicine
DX: T81.89XD Other complications of procedures, not elsewhere classified, subsequent encounter (principal)
CPT/HCPCS: 97605; A4218

== ENCOUNTER 2018-02-19 15:38 | Outpatient (CLI) | payer MEDICARE, OTHER ==
[~2018-02-19 15:38] MED LIST: Sodium Chloride 0.9% 15 ML NEB ONE
--- NOTE | 2018-02-19 18:01 | PRG ---
DATE OF SERVICE: 02/19/2018 SUBJECTIVE: Mr. Azar is seen in Wound Care for a right great toe amputation. This wound had some soft tissue bleeding at time of operation. He had Doppler pedal pulses. Dr. Perry Escobedo saw him earlier this month when he was in the hospital and it was felt that he had a good chance of healing his wound without intervention. It was felt he probably had small-vessel disease. He did not have a CT angiogram or any intervention. He is on dialysis. He has had a previous coronary artery bypass grafting. He has not had a CTA. Though the right wound is desiccated, there is no granulation tissue, there is no hair on his feet. ASSESSMENT AND PLAN: PAD. There is a good chance of this could result in a [id number] amputation. We will ask Dr. Perry Escobedo to see him and see if there is anything that can be done to improve his circulation and Dr. Escobedo will visit him in wound care and tend to this. I will be available pending Vascular evaluation. Currently, there is no infection. Antibiotics will not help. Await Vascular evaluation. Job ID: [id number]
== END 2018-02-19 15:39 | disposition home or self-care (01) ==
LOC: WCC 15:38
PROVIDERS: ATTEND Family Medicine
DX: Z47.81 Encounter for orthopedic aftercare following surgical amputation (principal); Z89.411 Acquired absence of right great toe
CPT/HCPCS: 97605; A4218

== ENCOUNTER 2018-02-22 07:24 | Day surgery (SDC) | payer MEDICARE, OTHER ==
[2018-02-21 12:13] VITALS: BMI 23.3
[2018-02-22] MEDS ORDERED: Midazolam HCl 2 mg/2 ml Vial ONE (08:56)
[2018-02-22] MEDS ORDERED: Lidocaine 1% (PF) 30 ML VIAL ONE (08:56)
[2018-02-22] MEDS ORDERED: Fentanyl 100 MCG/2 ML VIAL ONE (08:56)
[2018-02-22] MEDS ORDERED: Iopamidol 370 76% 100 ML VIAL ONE (09:32)
[2018-02-22] MEDS ORDERED: Heparin 10,000 UNITS/1 ML VIAL ONE (09:39)
[2018-02-22] MEDS ORDERED: Protamine Sulfate 50 MG/5 ML VIAL ONE (09:59)
--- NOTE | 2018-02-22 12:58 | PRG ---
DATE OF SERVICE: 02/22/2018 Michael Azar is a 72-year-old male patient, who I amputated his right great toe. This was seen in Wound Care and was not healing. Dr. Perry Escobedo saw him the patient had an arteriogram. He had a left iliac stent placed. He had patent right superficial femoral vessels with the trifurcation, which was occluded below. There are no options for intervention to improve his right leg circulation. I discussed with the patient and his recommendations for right below-knee amputation. We will have paperwork in the office and the family will look at their calender and call me when they want to schedule this. Risks of infection, bleeding, reoperation, failure to heal discussed, although Dr. Escobedo and I both agree that we believe this leg will right below-knee amputation. He understands the risks and benefits, and consents. We will plan admission postoperatively and he will go to rehab postoperatively. Job ID: [id number]
--- NOTE | 2018-02-22 13:14 | OP ---
DATE OF PROCEDURE: 02/22/2018 PREOPERATIVE DIAGNOSIS: Peripheral vascular disease with gangrene of the right great toe, status post amputation with nonhealing wound. POSTOPERATIVE DIAGNOSIS: Peripheral vascular disease with gangrene of the right great toe, status post amputation with nonhealing wound. PROCEDURES PERFORMED: 1. Left external iliac artery angiogram. 2. Abdominal aortic angiogram. 3. Right external iliac artery angiogram with right leg runoff. 4. Right common femoral artery angiogram. 5. Right superficial femoral artery angiogram. 6. The left common iliac artery AGRONOMY PROFESSOR/stenting with a 9 x 37 Express LD stent taken to 6 mmHg with no residual stenosis. Heparin 5000 units and protamine 25 mg given at completion. TOTAL CONTRAST: 32 mL. TOTAL FLUORO TIME: 4.1 minutes. DESCRIPTION OF PROCEDURE: After consent was obtained, the patient was brought to catheterization lab, placed supine position on the roofing laborer table. Appropriate monitors were placed. The patient was given 25 mcg of fentanyl and 0.5 mg of Versed. Using ultrasound guidance, the left groin was interrogated and anesthetized with 1% lidocaine. Percutaneous access to the left common femoral artery was obtained, and a 5-Angolan sheath was placed. Hand-injected arteriogram was performed with the tip of the sheath and external iliac artery. There were severe calcification and stenosis of the left common iliac artery. This was traversed with a Contra catheter and UsTrendyson guidewire. Contra catheter was positioned in the abdominal aorta. Hand-injected aortograms were performed showing no intraluminal encroachment from any atherosclerotic disease. The aortic bifurcation was crossed with Contra catheter, and the catheter positioned in the external iliac artery. Hand-injected arteriogram was performed. The right common and external iliac arteries were free of any calcification or atherosclerotic disease. Catheter was advanced into the right common femoral artery. Hand-injected arteriogram was performed. Using digital angiography, the contrast was traced down to the knee. Superficial femoral artery was calcified, but there was no flow limiting disease. Catheter was then positioned in the distal superficial femoral artery. Digital angiography was used to interrogate the popliteal artery from the patella downstream. Popliteal artery was widely patent. The anterior tibial artery was widely patent. The posterior tibial and peroneal arteries were occluded. The anterior tibial artery passed down to the level of the ankle, where it terminated in a rich collateral network. Catheter was withdrawn back over the aortic bifurcation. The 5-Angolan sheath was exchanged for a 7-Angolan sheath with a marker tip. Tip was positioned in the distal aorta. Hand-injected arteriogram was performed. Using road mapping, the common iliac artery stenosis on the left was measured. A 9 x 37 stent was selected. This was positioned with its proximal tip at the aortic bifurcation. The balloon was inflated to 6 mmHg. Followup angiogram showed excellent result with no residual stenosis and good runoff. ProGlide was deployed at the left stick site, and hemostasis was obtained. 25 mg of protamine was administered at the end of procedure. Job ID: [id number]
== END 2018-02-22 14:15 | disposition home or self-care (01) ==
LOC: CCL 07:24
PROVIDERS: ATTEND Thoracic Surgery (Cardiothoracic Vascular Surgery)
PROC: 047D3DZ Dilation of Left Common Iliac Artery with Intraluminal Device, Percutaneous Approach (ICD-10-PCS; principal; 2018-02-22)
PROC: 04HK3DZ Insertion of Intraluminal Device into Right Femoral Artery, Percutaneous Approach (ICD-10-PCS; 2018-02-22)
DX: E11.51 Type 2 diabetes mellitus with diabetic peripheral angiopathy without gangrene (principal); I70.203 Unspecified atherosclerosis of native arteries of extremities, bilateral legs; I25.10 Atherosclerotic heart disease of native coronary artery without angina pectoris; I12.0 Hypertensive chronic kidney disease with stage 5 chronic kidney disease or end stage renal disease; E11.22 Type 2 diabetes mellitus with diabetic chronic kidney disease; N18.6 End stage renal disease; Z87.891 Personal history of nicotine dependence; Z79.82 Long term (current) use of aspirin; Z79.84 Long term (current) use of oral hypoglycemic drugs; Z79.899 Other long term (current) drug therapy; Z89.411 Acquired absence of right great toe; Z95.1 Presence of aortocoronary bypass graft; Z90.49 Acquired absence of other specified parts of digestive tract; Z99.2 Dependence on renal dialysis
CPT/HCPCS: 37221; 76942; 85347; 99152; 99153; C1760; C1769; C1876; J1642; J1644; J2001; J2250; J2720; J3010

== ENCOUNTER 2018-02-27 06:53 | Outpatient (CLI) | payer MEDICARE, OTHER ==
[2018-02-27 16:41] LABS: #Basophils 0.1 thou/uL (0.0-0.2); #Eosinphils 0.4 thou/uL (0.0-0.7); #Lymphocytes 1.2 thou/uL (1.20-3.40); #Monocytes 0.5 thou/uL (0.11-0.59); #Neutrophils 4.9 thou/uL (1.40-6.50); %Basophils 1.1 % (0.0-1.0); %Lymphocytes 17.3 % (21.0-51.0); %Monocytes 7.6 % (0.0-10.0); Mean Corpuscular HGB CONC 31.4 g/dL (32.0-36.0); Mean Corpuscular Hemoglobin 30.7 pg (27.0-31.0); Mean Corpuscular Volume 97.7 fL (78.0-98.0); Mean Platelet Volume 7.7 fL (7.4-10.4); Platelet Count 355 thou/uL (130-400); RBC Distribution Width 14.6 % (11.5-14.5); Red Blood Cell (RBC) Count 3.26 mill/uL (4.70-6.10); White Blood Cell (WBC) Count 7.1 thou/uL (4.8-10.8)
[2018-02-27 17:00] LABS: Anion Gap 19 mmol/L (10-20); BUN (Urea Nitrogen) 30 mg/dL (8.4-25.7); Calc. Creatinine Clearance 0 mL/min (70-130); Calcium 9.2 mg/dL (7.8-10.44); Carbon Dioxide 28 mmol/L (23-31); Chloride 96 mmol/L (98-107); Estimated GFR-MDRD 6; Glucose 211 mg/dL (80-115); Potassium 4.8 mmol/L (3.5-5.1); Sodium 138 mmol/L (136-145)
== END 2018-02-27 06:54 | disposition home or self-care (01) ==
LOC: LABBT 06:53
PROVIDERS: ATTEND Specialist
DX: Z01.812 Encounter for preprocedural laboratory examination (principal); I73.9 Peripheral vascular disease, unspecified
CPT/HCPCS: 80048; 85025; 86850; 86900; 86901

== ENCOUNTER 2018-02-27 15:30 | Inpatient (IN) | payer MEDICARE, OTHER ==
[2018-02-27 16:13] VITALS: BMI 23.3
[2018-02-28] MEDS ORDERED: Lidocaine 1% PF 5 ML VIAL ONE (13:20)
[2018-02-28] MEDS ORDERED: Ondansetron PF 4 MG/2 ML Vial ONE (13:20)
[2018-02-28] MEDS ORDERED: PROPOFOL 200 MG/20 ML VIAL ONE (13:20)
[2018-02-28] MEDS ORDERED: Ketorolac Tromethamine 30 MG/ML VIAL ONE (13:34)
[2018-02-28] MEDS ORDERED: CEFAZOLIN 2 GM/50 ML BAG ONE (13:34)
[2018-02-28] MEDS ORDERED: Fentanyl 100 MCG/2 ML VIAL ONE ×2 (13:38→16:04)
[2018-02-28 13:45] LABS: Anion Gap 19 mmol/L (10-20); BUN (Urea Nitrogen) 42 mg/dL (8.4-25.7); Calc. Creatinine Clearance 6 mL/min (70-130); Calcium 9.4 mg/dL (7.8-10.44); Carbon Dioxide 23 mmol/L (23-31); Chloride 99 mmol/L (98-107); Estimated GFR-MDRD 5; Glucose 73 mg/dL (80-115); Potassium 5.1 mmol/L (3.5-5.1); Sodium 136 mmol/L (136-145)
[2018-02-28] MEDS ORDERED: hydrALAZINE 20 MG/ML VIAL SLOW IVP PRN (15:46)
[2018-02-28] MEDS ORDERED: Ondansetron ODT 4 MG TAB PO PRN (15:46)
[2018-02-28] MEDS ORDERED: Dextrose 50% Abboject 50 ML SYRINGE SLOW IVP PRN (15:46)
[2018-02-28] MEDS ORDERED: Dextrose 5% in Water 1,000 ML IV PRN (15:46)
[2018-02-28] MEDS ORDERED: rOPINIRole HCl 2 MG TAB PO PRN (15:55)
[2018-02-28] MEDS ORDERED: NIFEdipine XL 60 MG TAB PO PRN (15:55)
[2018-02-28] MEDS ORDERED: Promethazine HCl 25 MG/ML VIAL IM PRN (17:01)
[2018-02-28] MEDS ORDERED: diphenhydrAMINE 50 MG/ML VIAL IM PRN (17:01)
[2018-02-28] MEDS ORDERED: Naloxone HCl 0.4 mg/ml Vial IV PRN (17:01)
[2018-02-28] MEDS ORDERED: diphenhydrAMINE 25 MG CAP PO PRN (17:01)
[2018-02-28] MEDS ORDERED: diphenhydrAMINE 50 MG/ML VIAL IVP PRN (17:01)
[2018-02-28] MEDS ORDERED: fentaNYL Citrate/PF 2,000 MCG in Sodium Chloride 0.9% 60 ML IV PRN (17:01)
[2018-02-28] MEDS ORDERED: Ondansetron PF 4 MG/2 ML Vial IVP PRN (17:01)
[2018-02-28] MEDS ORDERED: Zolpidem Tartrate 5 MG TAB PO PRN (17:01)
[2018-02-28] MEDS ORDERED: Acetaminophen 500 MG TAB PO PRN (17:08)
[2018-02-28] MEDS ORDERED: traMADol HCl 50 MG TAB PO PRN ×2 (17:08)
[2018-02-28] MEDS ORDERED: Communication Order-Pharmacy FS SCH (17:15)
[2018-02-28] MEDS: Sodium Chloride 0.9% 1,000 ML IV SCH (18:14)
[2018-02-28] MEDS: Sevelamer Carbonate 800 MG TAB PO SCH (18:14)
--- NOTE | 2018-02-28 19:38 | OP ---
DATE OF PROCEDURE: 02/28/2018 PREOPERATIVE DIAGNOSES: Right foot gangrene with PAD, end-stage renal disease, and diabetes. POSTOPERATIVE DIAGNOSES: Right foot gangrene with PAD, end-stage renal disease, and diabetes. PROCEDURE PERFORMED: Right below-knee amputation. ANESTHESIA: General. ESTIMATED BLOOD LOSS: 75 mL. DESCRIPTION OF PROCEDURE: The patient was taken to the operating room, where under general anesthesia, right lower extremity was prepared with ChloraPrep and draped in routine fashion. Incision was made for a fishmouth incision with a long posterior flap carried down through the skin and subcutaneous tissue, fascia dividing muscle layers with the cautery and vascular bundles between clamps, ligated with 2-0 silk ties. Tibia cleared the periosteum proximally, transected with the Gigli saw, beveling the anterior edge cephalad, smoothened with a rasp. Fibula cut about an inch above the cut edge of the tibia. Final tissues divided with cautery. Wound irrigated. Good hemostasis obtained with cautery and 2-0 silk ties. Fascia approximated with 2-0 Vicryl sutures and skin with valdemar. Sterile dressing applied. Job ID: [id number]
[2018-02-28] MEDS: Gabapentin 300 MG CAP PO SCH (21:13)
[2018-02-28] MEDS: Atorvastatin Calcium 40 MG TAB PO SCH (21:13)
[2018-02-28] MEDS: Metoprolol Tartrate 50 MG TAB PO SCH (21:13)
[2018-02-28] MEDS: Insulin Regular 300 UNITS/3 ML VIAL SC PRN (23:57)
--- NOTE | 2018-03-01 01:28 | CON ---
DATE OF CONSULTATION: 02/28/2018 CONSULTING PHYSICIAN: Susan Bell MD REASON FOR CONSULTATION: Need for maintenance hemodialysis. IMPRESSION: 1. End-stage renal disease hemodialysis dependent Monday, Monday and Monday, due for dialysis today but there is no emergent indication for dialysis. 2. Peripheral vascular disease, status post below-knee amputation. 3. Diabetes mellitus. PLAN: 1. The patient will rest today and then undergo dialysis tomorrow. Given the fact there is no emergent indication for dialysis today. 2. Further management will be dependent on the clinical course. HISTORY OF PRESENT ILLNESS: A 72-year-old gentleman with end-stage renal disease on Monday, Monday and Monday schedule, who presented here for elective below-knee amputation due to nonhealing osteomyelitis in the context of peripheral vascular disease. The patient did undergo successful below-knee amputation today and the need for dialysis necessitated this renal consultation. Past medical history, family history, social history, allergies, and medications remain the same. For details, please refer to dictation about a week ago. REVIEW OF SYSTEMS: As documented in the body of history. All other systems reviewed and found not to be significantly related to presenting illness. PHYSICAL EXAMINATION: GENERAL: The patient was found to be sleepy under the influence of anesthesia, but hemodynamically stable. HEENT: Unremarkable. CARDIOVASCULAR SYSTEM: Positive. HEART: Sounds were heard. RESPIRATORY SYSTEM: Clear to auscultation. DIGESTIVE SYSTEM: Revealed a benign abdomen with positive bowel sounds. EXTREMITIES: No peripheral edema. SKIN: No new gross rash. LYMPHATICS: No peripheral lymphadenopathy. SUMMARY: A 72-year-old gentleman with end-stage renal disease, hemodialysis dependent, who presented here for below-knee amputation due to nonhealing osteomyelitis. Thank you for this consultation. We will follow with you. Job ID: [id number]
[2018-03-01 06:29] LABS: #Eosinphils 0.3 thou/uL (0.0-0.7); #Lymphocytes 0.9 thou/uL (1.20-3.40); #Monocytes 0.5 thou/uL (0.11-0.59); #Neutrophils 6.7 thou/uL (1.40-6.50); %Basophils 0.5 % (0.0-1.0); %Eosinophils 3.8 % (0.0-10.0); %Lymphocytes 10.2 % (21.0-51.0); %Monocytes 6.3 % (0.0-10.0); %Neutrophils 79.2 % (42.0-75.0); Hemoglobin 8.3 g/dL (14.0-18.0); Mean Corpuscular HGB CONC 32.7 g/dL (32.0-36.0); Mean Corpuscular Hemoglobin 31.9 pg (27.0-31.0); Mean Corpuscular Volume 97.6 fL (78.0-98.0); Mean Platelet Volume 7.5 fL (7.4-10.4); Platelet Count 295 thou/uL (130-400); RBC Distribution Width 14.4 % (11.5-14.5); Red Blood Cell (RBC) Count 2.58 mill/uL (4.70-6.10); White Blood Cell (WBC) Count 8.5 thou/uL (4.8-10.8)
[2018-03-01] MEDS: Metoprolol Tartrate 50 MG TAB PO SCH ×3 (09:31→21:04)
[2018-03-01] MEDS: Sevelamer Carbonate 800 MG TAB PO SCH ×3 (09:31→16:24)
[2018-03-01] MEDS: Gabapentin 300 MG CAP PO SCH ×2 (09:31→21:04)
[2018-03-01] MEDS: glipiZIDE 5 MG TAB PO SCH (13:04)
[2018-03-01] MEDS: Aspirin Chewable 81 MG TAB PO SCH (13:04)
--- NOTE | 2018-03-01 14:30 | PRG ---
DATE OF SERVICE: 03/01/2018 SUBJECTIVE: Mr. Azar is doing well today. His pain is well controlled on a ROUTING EQUIPMENT TENDER pump. OBJECTIVE: VITAL SIGNS: Temperature 98.8 degrees, heart rate 94, blood pressure 180/60. HEAD, EARS, EYES, NOSE AND THROAT: Unremarkable. LUNGS: Clear to auscultation. CARDIAC: Regular rate and rhythm. No murmur or gallop. EXTREMITIES: Amputation stump, dry dressing. ASSESSMENT AND PLAN: The patient is doing well. His hemoglobin today is 8.3, down from 10 preoperatively. Observe. No need for transfusion. He TKO IV fluids. He is tolerating his renal diabetic diet. Tomorrow plan removal of his dressings and he can transfer to rehab tomorrow, if there is a bed available. We will stop his ROUTING EQUIPMENT TENDER tomorrow. Obtain stump property field inspector. Start oral analgesics. Continue physical therapy. Job ID: [id number]
[2018-03-01] MEDS: Sodium Chloride 0.9% 1,000 ML IV SCH (15:15)
[2018-03-01] MEDS: Insulin Regular 300 UNITS/3 ML VIAL SC PRN (16:24)
--- NOTE | 2018-03-01 20:54 | PRG ---
DATE OF SERVICE: 03/01/2018 SUBJECTIVE: The patient was seen and examined, seen at dialysis, seems to be doing much better, noted with the following vital signs. OBJECTIVE: VITAL SIGNS: Afebrile, temperature 98.8, pulse 94, respiratory rate of 18, O2 saturations are 95% with blood pressure of 190/62. HEENT: Examination unremarkable CARDIOVASCULAR SYSTEM: First and second heart sounds were heard. RESPIRATORY SYSTEM: Clear to auscultation. DIGESTIVE SYSTEM: Revealed a benign abdomen. Positive bowel sounds. EXTREMITIES: No peripheral edema. SKIN: No new gross rash. LYMPHATICS: No peripheral lymphadenopathy. IMPRESSION: 1. End-stage renal disease, on hemodialysis. 2. Hypertension, suboptimally controlled. 3. Peripheral vascular disease, status post amputation. PLAN: 1. We will resume all the patient's antihypertensive medications and monitor accordingly and adjust based on hemodynamics. 2. Pain management per the primary team. 3. Hemodialysis for now the patient to be on Monday, , and Monday schedule. Job ID: [id number]
[2018-03-01] MEDS: Atorvastatin Calcium 40 MG TAB PO SCH (21:04)
[2018-03-02] MEDS ORDERED: traMADol HCl 50 MG TAB PO PRN ×2 (07:44)
[2018-03-02] MEDS: glipiZIDE 5 MG TAB PO SCH (09:10)
[2018-03-02] MEDS: Aspirin Chewable 81 MG TAB PO SCH (09:11)
[2018-03-02] MEDS: Gabapentin 300 MG CAP PO SCH ×2 (09:11→23:01)
[2018-03-02] MEDS: Metoprolol Tartrate 50 MG TAB PO SCH ×2 (09:11→23:01)
[2018-03-02] MEDS: Sevelamer Carbonate 800 MG TAB PO SCH ×3 (09:12→17:48)
[2018-03-02] MEDS: Polyethylene Glycol 3350 17 GM Packet PO SCH (12:18)
[2018-03-02] MEDS: Insulin Regular 300 UNITS/3 ML VIAL SC PRN ×3 (12:19→23:01)
--- NOTE | 2018-03-02 12:29 | PQF ---
ANANT MERCEDES JR, RICHARD D MD [id number] [place] [id number] CLINICAL DOCUMENTATION IMPROVEMENT CLARIFICATION FORM: ICD-10 Updated PLEASE DO AN ADDENDUM TO THE PROGRESS NOTE WITH ANY DOCUMENTATION UPDATES OR ADDITIONS AND CARRY THROUGH TO DC SUMMARY. THANK YOU. DATE: 03-02-18 ATTN: DR. JONES Please exercise your independent, professional judgment in responding to the clarification form. Clinical indicators are provided on the bottom of this form for your review Procedure: 02-28-18 RIGHT BELOW-KNEE AMPUTATION [ ] High Right Below-Knee Amputation [ ] Mid Right Below-Knee Amputation [ ] Low Right Below-Knee Amputation [ ] Unable to determine [ ] Other procedure: CLINICAL INDICATORS - SIGNS/ SYMPTOMS / LABS 02-28 Op Note (ROBERT): RIGHT BELOW-KNEE AMPUTATION RISK FACTORS 02-28 Op Note (ROBERT): RIGHT FOOT GANGRENE W/ PAD, ESRD, DIABETES TREATMENT 02-28 Op Note (ROBERT): RIGHT BELOW-KNEE AMPUTATION THANK YOU, KATIUSKA (This form is maintained as a part of the permanent medical record) 2015 [employer]. All Rights Reserved Katiuska Heath RN, BS [email or web address] [employer] [facility]
--- NOTE | 2018-03-02 19:41 | PRG ---
DATE OF SERVICE: 03/02/2018 SUBJECTIVE: The patient is seen and examined, noted with the following vital signs. OBJECTIVE: VITAL SIGNS: Afebrile, temperature 98.9, pulse 71, respiratory rate of 16, O2 saturations 97%, and blood pressure 138/55. HEENT: Unremarkable. Moist oral mucosa. No conjunctival injection or icterus. NECK: Supple. CARDIOVASCULAR SYSTEM: First and second heart sounds were heard. RESPIRATORY SYSTEM: Clear to auscultation. DIGESTIVE SYSTEM: Revealed a benign abdomen. Positive bowel sounds. EXTREMITIES: No peripheral edema. SKIN: No new gross rash. LYMPHATICS: No peripheral lymphadenopathy. IMPRESSION: 1. End-stage renal disease, on hemodialysis. 2. Peripheral vascular disease, status post amputation. PLAN: 1. The patient to continue with current dialysis schedule of Monday, and Monday. 2. Further management to be dependent on the clinical course. Job ID: [id number]
[2018-03-02] MEDS ORDERED: Triple Antibiotic Oint 1 GM Packet TOP SCH (21:00)
[2018-03-02] MEDS: Atorvastatin Calcium 40 MG TAB PO SCH (23:01)
[2018-03-03] MEDS: Sevelamer Carbonate 800 MG TAB PO SCH ×3 (07:46→16:55)
[2018-03-03] MEDS: Metoprolol Tartrate 50 MG TAB PO SCH (07:46)
[2018-03-03] MEDS: glipiZIDE 5 MG TAB PO SCH (07:47)
[2018-03-03] MEDS: Gabapentin 300 MG CAP PO SCH (07:48)
[2018-03-03] MEDS: Aspirin Chewable 81 MG TAB PO SCH (07:48)
[2018-03-03] MEDS ORDERED: Triple Antibiotic Ointment 30 GM TUBE TOP SCH ×2 (09:00→21:00)
[2018-03-03] MEDS: Polyethylene Glycol 3350 17 GM Packet PO SCH (13:44)
[2018-03-03] MEDS: Insulin Regular 300 UNITS/3 ML VIAL SC PRN (16:57)
--- NOTE | 2018-03-03 17:13 | PDOC.GSPN ---
Surgery Progress Note: Subj - Subjective Narrative: Patient is doing well. Pain is controlled and he is working with physical therapy. Stump rubber block layer is in place and he has full range of motion. Vital signs are stable and he is awaiting rehabilitation placement. Surgery Progress Note: Obj - Vital signs Vital signs: Vital Signs - Most Recent Temp Pulse Resp BP Pulse Ox 98.2 F 72 20 103/67 96 03/03/18 14:45 03/03/18 14:45 03/03/18 14:45 03/03/18 14:45 03/03/18 14:45 Surgery Progress Note: Results - Labs Result Diagrams: 03/01/18 05:56 02/28/18 13:00 Lab results: Laboratory Results - last 24 hr 03/03/18 03/03/18 03/03/18 05:31 14:39 16:16 POC Glucose 86 146 H 199 H
[2018-03-03 17:41] VITALS: BP 111/72; TEMP 98.5
--- NOTE | 2018-03-03 20:04 | PRG ---
DATE OF SERVICE: 03/03/2018 SUBJECTIVE: The patient noted with the following vital signs. OBJECTIVE: VITAL SIGNS: Afebrile, temperature 98.5, pulse 95, respiratory rate of 18, O2 saturation of 93%, and blood pressure 111/72. HEENT: Unremarkable. Moist oral mucosa. No conjunctival injection or icterus. NECK: Supple. CARDIOVASCULAR SYSTEM: First and second heart sounds were heard. RESPIRATORY SYSTEM: Clear to auscultation. DIGESTIVE SYSTEM: Revealed a benign abdomen. Positive bowel sounds. EXTREMITIES: No peripheral edema. SKIN: No new gross rash. LYMPHATICS: No peripheral lymphadenopathy. IMPRESSION: 1. End-stage renal disease, hemodialysis dependent. 2. Peripheral vascular disease, status post below-knee amputation. PLAN: 1. The patient is status post discharge to continue on Monday, Monday, and Monday dialysis. 2. In the new rehab, patient will be covered by Dr. Eusebio Almeida. 3. Further management will be dependent on the clinical course. Job ID: [id number]
== END 2018-03-03 19:00 | DRG 239 ==
LOC: SURG A 02-28 11:17 → SJJU 02-28 16:07
PROVIDERS: ADMIT Specialist; ATTEND Specialist
PROC: 0Y6H0Z2 Detachment at Right Lower Leg, Mid, Open Approach (ICD-10-PCS; principal; 2018-02-28)
PROC: 5A1D70Z Performance of Urinary Filtration, Intermittent, Less than 6 Hours Per Day (ICD-10-PCS; 2018-03-01)
DX: E11.52 Type 2 diabetes mellitus with diabetic peripheral angiopathy with gangrene (principal); N18.6 End stage renal disease; M86.8X6 Other osteomyelitis, lower leg
CPT/HCPCS: 36415; 36416; 80048; 85025; 86850; 86900; 86901; 88307; 90935; G0257; J0131; J1885; J2001; J2405; J2704; J3010; J7050; L8440

== ENCOUNTER 2018-03-26 12:31 | Outpatient (CLI) | payer MEDICARE, OTHER ==
--- NOTE | 2018-03-26 14:56 | RAD ---
PORTABLE CHEST 1 VIEW: Date: 03/26/18 Time: 1256 hours HISTORY: Positive TB skin test. FINDINGS: Comparison made with exam of 02/07/18. There are changes of median sternotomy. The heart size is normal. The aorta is tortuous. The lungs ar e expanded without focal areas of consolidation, pneumothoraces, or pleural effusions. IMPRESSION: No radiographic evidence of active pulmonary tuberculosis. POS: [facility]
== END 2018-03-26 12:32 | disposition home or self-care (01) ==
LOC: RAD 12:31
PROVIDERS: ATTEND Internal Medicine Nephrology
DX: R76.11 Nonspecific reaction to tuberculin skin test without active tuberculosis (principal)
CPT/HCPCS: 71045

== ENCOUNTER 2018-04-20 07:39 | Observation (INO) | payer MEDICARE, OTHER ==
[2018-04-20] MEDS ORDERED: Aspirin 325 MG TAB ONE (08:04)
[2018-04-20 08:17] LABS: #Eosinphils 0.4 thou/uL (0.0-0.7); #Lymphocytes 1.6 thou/uL (1.20-3.40); #Monocytes 0.6 thou/uL (0.11-0.59); #Neutrophils 11.4 thou/uL (1.40-6.50); %Basophils 0.3 % (0.0-1.0); %Eosinophils 2.7 % (0.0-10.0); %Lymphocytes 11.6 % (21.0-51.0); %Monocytes 4.1 % (0.0-10.0); %Neutrophils 81.3 % (42.0-75.0); Hemoglobin 10.7 g/dL (14.0-18.0); Mean Corpuscular HGB CONC 32.4 g/dL (32.0-36.0); Mean Corpuscular Hemoglobin 30.7 pg (27.0-31.0); Mean Corpuscular Volume 94.9 fL (78.0-98.0); Mean Platelet Volume 7.9 fL (7.4-10.4); Platelet Count 214 thou/uL (130-400); RBC Distribution Width 16.1 % (11.5-14.5)
--- NOTE | 2018-04-20 08:28 | RAD ---
PORTABLE CHEST ONE VIEW: 04/20/2018 7:01 a.m. HISTORY: Chest pain. COMPARISON: 03/26/2018 FINDINGS: Changes of median sternotomy are again seen. The heart size is normal. The lungs are expanded witho ut focal areas of consolidation, pneumothoraces, or pleural effusions. IMPRESSION: No radiographic evidence of acute cardiopulmonary process. POS: [facility]
[2018-04-20 08:35] LABS: ALT (SGPT) 23 U/L (8-55); AST (SGOT) 23 U/L (5-34); Albumin 3.9 g/dL (3.4-4.8); Alkaline Phosphatase 128 U/L (40-150); Anion Gap 18 mmol/L (10-20); BUN (Urea Nitrogen) 27 mg/dL (8.4-25.7); Bilirubin, Total 0.7 mg/dL (0.2-1.2); CK (CPK) 38 U/L (30-200); Calc. Creatinine Clearance 0 mL/min (70-130); Calcium 9.2 mg/dL (7.8-10.44); Carbon Dioxide 19 mmol/L (23-31); Chloride 106 mmol/L (98-107); Estimated GFR-MDRD 13; Glucose 113 mg/dL (80-115); Lipase 36 U/L (8-78); Protein, Total 6.9 g/dL (5.8-8.1); Sodium 139 mmol/L (136-145)
[2018-04-20 08:56] LABS: CKMB 1.1 ng/mL (0-6.6)
--- NOTE | 2018-04-20 12:07 | HP ---
PRIMARY CARE PROVIDER: [facility]. PRIMARY LIEN SEARCHER: Susan Bell MD CHIEF COMPLAINT: Shortness of breath and low blood pressure. HISTORY OF PRESENT ILLNESS: This is a 72-year-old male, who presents to [facility] Emergency Department in transfer from hemodialysis unit, where the patient was receiving maintenance hemodialysis. The patient states that approximately 2 hours into his dialysis session, his blood pressure continued to decrease, at which point, dialysis staff attempted several maneuvers to increase his blood pressure by holding his dialysis and stopping fluid removal. The patient states that he also was taken off the machine. However, his blood pressure continued to decrease. The patient received 1 L of intravenous normal saline, but developed increased shortness of breath and chest discomfort while his blood pressure was decreasing. The patient has noted varying amounts of hypotension during dialysis and has had to have his dry weight adjusted after recent amputation of his right lower extremity. The patient states he has been compliant with his hemodialysis sessions and has been receiving hemodialysis since 2010. The patient denied any specific change to his chronic medication regimen and increase in antihypertensive medications. The patient denied any unilateral weakness, visual disturbance, difficulty with speech, nausea, or vomiting. The patient denied any specific fever, chills, or diarrhea. The patient currently denies any specific chest discomfort and feels back to baseline. In the emergency room, the patient underwent general evaluation including metabolic screening with a mildly elevated troponin I of 0.030. The patient received intravenous normal saline x1 L as well as aspirin 325 mg. PAST MEDICAL HISTORY: 1. Diabetes mellitus with end-stage renal disease and current hemodialysis. 2. History of gangrene of the right foot, status post right [id number]-tzg-rvla amputation in February 2018. 3. Peripheral neuropathy secondary to diabetes mellitus, type 2. 4. End-stage renal disease with hemodialysis. 5. Coronary artery disease. 6. Hyperlipidemia. 7. History of atrial fibrillation with associated anticoagulation with Eliquis. 8. Hypertension. 9. History of CVA/TIAs. PAST SURGICAL HISTORY: 1. Status post coronary artery bypass grafting in 2011. 2. Status post cornea extraction of the left eye. 3. Status post cholecystectomy. 4. Status post partial colectomy. CURRENT MEDICATIONS: 1. Enteric-coated aspirin 81 mg p.o. daily. 2. Lipitor 40 mg p.o. at bedtime. 3. Vitamin D3 of 3000 units p.o. daily. 4. Glipizide 2.5 mg p.o. q.a.m. 5. Metoprolol tartrate 50 mg p.o. b.i.d. 6. Procardia XL 60 mg p.o. daily. 7. Ropinirole 2 mg p.o. at bedtime p.r.n. 8. Renagel 2400 mg p.o. t.i.d. with meals. 9. Cardizem CD 120 mg p.o. daily. ALLERGIES: NO KNOWN DRUG ALLERGIES. FAMILY HISTORY: Positive for hypertension and diabetes mellitus. SOCIAL HISTORY: The patient is . Resides in the [facility]. No current alcohol, tobacco, or illicit drug use. REVIEW OF SYSTEMS: CONSTITUTIONAL: Negative for weight loss or gain, ability to conduct usual activities. SKIN: Negative for rash, itching. EYES: Negative for double vision, pain. ENT/MOUTH: Negative for nose bleeding, neck stiffness, pain, tenderness. CARDIOVASCULAR: Negative for palpitations, dyspnea on exertion, orthopnea. RESPIRATORY: Negative for shortness of breath, wheezing, cough, hemoptysis, fever or night sweats. GASTROINTESTINAL: Negative for poor appetite, abdominal pain, heartburn, nausea, vomiting, constipation, or diarrhea. GENITOURINARY: Negative for urgency, frequency, dysuria, nocturia. MUSCULOSKELETAL: Negative for pain, swelling. NEUROLOGIC/PSYCHIATRIC: Negative for anxiety, depression. ALLERGY/IMMUNOLOGIC: Negative for skin rash, bleeding tendency. Otherwise, negative except as stated per HPI. PHYSICAL EXAMINATION: VITAL SIGNS: On admission, blood pressure 145/45, pulse 83, respiratory rate 18, temperature 98.3 degrees Fahrenheit, and O2 saturation 100% on room air. GENERAL APPEARANCE: This is a 72-year-old male, alert and oriented x3, pleasant, conversant, in no acute distress. HEENT: Pupils are equal, round, and reactive to light and accommodation. Left ptosis noted consistent with prior surgical history of the left eye. Nares patent. OP is clear. Teeth in fair repair. NECK: Supple. No cervical adenopathy. No thyromegaly. No carotid bruits. No JVD appreciated. Cervical spine with full active and passive range of motion. No meningeal signs noted. CHEST: Lungs are clear to auscultation bilaterally. CARDIOVASCULAR: S1 and S2 without noted murmur, rub, or gallop. ABDOMEN: Rounded, soft, nontender, and nondistended. Bowel sounds are positive in all 4 quadrants. There is no hepatosplenomegaly. No abdominal bruits. No rebound or guarding appreciated. EXTREMITIES: Warm and dry with fair turgor. Right bpdzi-epw-pdvs amputation noted with stump intact. Stump elastic wrap power screwdriver operator in place. Pulses palpable distally at the left dorsalis pedis and posterior tibial arteries. NEUROLOGIC: Cranial nerves II through XII are grossly intact. No focal or lateralizing signs appreciated. PERTINENT LABORATORY AND X-RAY FINDINGS: Sodium 139, potassium 4.0, chloride 106, CO2 of 19, BUN 27, creatinine 4.58, estimated GFR of 13, glucose 113, and calcium 9.2. LFTs within normal limits. Troponin I 0.030. BNP 230, previously noted 243 on 10/11/2017. Lipase 36. CBC showed a white blood cell count of 14, hemoglobin 10.7, hematocrit 33.2, and platelet count 214 with 81% neutrophils. Portable chest x-ray dated 04/20/2018, by my interpretation shows no acute cardiopulmonary process. EKG dated 04/20/2018, by my interpretation shows sinus mechanism, heart rates in the 70s. Attenuated R-waves noted in the precordial leads. Normal axis. T-wave flattening in leads V6. ASSESSMENT AND PLAN: 1. Chest pain. The patient will be observed on the telemetry unit. Suspect chest pain in relation to hypotensive event, currently resolved. We will continue trending serial troponin I. Continue aspirin 325 mg daily. Consider Cardiology consultation if symptoms recur. Check fasting lipid profile in the a.m. Check 2D transthoracic echocardiogram for evaluation of left ventricular function and ejection fraction. 2. Hypotension. Appears iatrogenic in relation to hemodialysis. Currently improved after IV fluid administration. Hold antihypertensive medications currently and monitor serial blood pressure trend. 3. Elevated troponin I. Suspect mild demand ischemia in the context of hypotensive event. Continue serial troponin I trending. 4. End-stage renal disease with hemodialysis. We will consult Nephrology Service for recommendations of next maintenance hemodialysis session. No current evidence to suggest volume overload. 5. Diabetes mellitus, type 2 with end-stage renal disease. Insulin sliding scale for reflexive coverage. Resume home regimen to include glipizide 2.5 mg daily. ADA diet. 6. Prophylaxis. Hold SCDs due to right bpizq-zsc-zbok amputation. Heparin 5000 units subcutaneously b.i.d. Pepcid 20 mg p.o. b.i.d. 7. Code status: Full. Surrogate medical decision maker is the patient's spouse. Job ID: [id number]
[2018-04-20 14:51] LABS: Troponin I 0.135 ng/mL (< 0.028)
[2018-04-20] MEDS ORDERED: Dextrose 50% Abboject 50 ML SYRINGE SLOW IVP PRN (14:53)
[2018-04-20] MEDS ORDERED: Nitroglycerin 0.4 MG TAB (25 Tab Bottle) PO PRN (14:53)
[2018-04-20] MEDS ORDERED: HumaLOG 300 UNITS/3 ML VIAL SC PRN ×2 (14:53)
[2018-04-20] MEDS ORDERED: rOPINIRole HCl 2 MG TAB PO PRN (14:53)
[2018-04-20] MEDS ORDERED: Dextrose 5% in Water 1,000 ML IV PRN (14:53)
[2018-04-20] MEDS ORDERED: Ondansetron PF 4 MG/2 ML Vial IVP PRN (14:53)
[2018-04-20] MEDS ORDERED: Ondansetron ODT 4 MG TAB PO PRN (14:53)
[2018-04-20] MEDS ORDERED: Acetaminophen 500 MG TAB PO PRN (14:53)
[2018-04-20 15:08] VITALS: BMI 21.5
--- NOTE | 2018-04-20 19:49 | CON ---
DATE OF CONSULTATION: CONSULTING PHYSICIAN: Susan Bell MD. REASON FOR CONSULTATION: End-stage renal disease. IMPRESSION: 1. End-stage renal disease, on hemodialysis, Monday, Monday, and Monday. 2. Chest pain with hypotension, likely related to dialysis ultrafiltration. PLAN: 1. We will instruct the outpatient dialysis facility to adjust the patient's dry weight to avoid precipitating hypotension. 2. Further management will be dependent on the clinical course. No indication for hemodialysis at this point. HISTORY OF PRESENT ILLNESS: History is that of 72-year-old gentleman with end-stage renal disease on hemodialysis, Monday, Monday, Monday, who became hypotensive, currently on dialysis and eventually developed chest pain and shortness of breath, for which they try to give the patient IV fluid. The patient continued to feel worse, felt the need to present to the ER, where the patient started evaluation, and he has now been admitted for chest pain, rule out. PAST MEDICAL HISTORY: Significant for end-stage renal disease, type 2 diabetes, peripheral vascular disease with gangrene of his extremity, status post amputation; coronary artery disease. MEDICATIONS: Reviewed and documented on [employer]. FAMILY HISTORY: Not significantly related to presenting illness. ALLERGIES: NO KNOWN DRUG ALLERGIES. SOCIAL HISTORY: Denies alcohol, tobacco, or illicit drug use. REVIEW OF SYSTEMS: As documented in the body of the history. All other systems were reviewed and found not to be significantly related to presenting illness. PHYSICAL EXAMINATION: GENERAL: The patient was found not to be in any obvious distress, noted with the following vital signs. VITAL SIGNS: Afebrile, temperature 98.1, pulse 76, respiratory rate of 18, O2 saturation 100% with blood pressure of 134/76. HEENT: Unremarkable. Moist oral mucosa. NECK: Supple. No conjunctival injection or icterus. CARDIOVASCULAR: First and second heart sounds were heard. RESPIRATORY SYSTEM: Clear to auscultation. DIGESTIVE: Revealed a benign abdomen. Positive bowel sounds. EXTREMITIES: No peripheral edema. SKIN: No new gross rash. LYMPHATICS: No peripheral lymphadenopathy. SUMMARY: A 72-year-old gentleman with end-stage renal disease, hemodialysis dependent, who presented here with chest pain and started on dialysis, likely related to ultrafiltration below dry weight. Thank you for this consultation. We will follow with you. Job ID: [id number]
[2018-04-20] MEDS ORDERED: Atorvastatin Calcium 40 MG TAB PO SCH (21:00)
[2018-04-20] MEDS: Heparin 5,000 UNITS/ML VIAL SC SCH (21:48)
[2018-04-20] MEDS: Famotidine 20 MG TAB PO SCH (21:49)
[2018-04-21 06:45] LABS: Eosinophils 8 % (0-10); Hemoglobin 10.4 g/dL (14.0-18.0); Lymphocytes 24 % (21-51); MDiff Complete? YES; Mean Corpuscular HGB CONC 32.4 g/dL (32.0-36.0); Mean Corpuscular Hemoglobin 31.3 pg (27.0-31.0); Mean Corpuscular Volume 96.7 fL (78.0-98.0); Mean Platelet Volume 8.2 fL (7.4-10.4); Monocytes 7 % (0-10); Neutrophil 61 % (42-75); Platelet Count 190 thou/uL (130-400); RBC Distribution Width 16.2 % (11.5-14.5); Red Blood Cell (RBC) Count 3.31 mill/uL (4.70-6.10); White Blood Cell (WBC) Count 6.9 thou/uL (4.8-10.8)
[2018-04-21 07:29] LABS: Anion Gap 15 mmol/L (10-20); BUN (Urea Nitrogen) 41 mg/dL (8.4-25.7); Calc. Creatinine Clearance 7 mL/min (70-130); Calcium 9.3 mg/dL (7.8-10.44); Carbon Dioxide 23 mmol/L (23-31); Cardiac Risk 2.6 (Less than 4.5); Chloride 107 mmol/L (98-107); Cholesterol 85 mg/dl (< 200 Desired); Estimated GFR-MDRD 8; Glucose 68 mg/dL (80-115); HDL Cholesterol 33 mg/dL (>60 Neg Risk); LDL Cholesterol, Calculated 33 mg/dL; Potassium 4.8 mmol/L (3.5-5.1); Sodium 140 mmol/L (136-145); Triglycerides 93 mg/dL (Less than 150)
[2018-04-21] MEDS ORDERED: glipiZIDE 5 MG TAB PO SCH (08:00)
[2018-04-21] MEDS: Famotidine 20 MG TAB PO SCH (08:43)
[2018-04-21] MEDS: hydrALAZINE 20 MG/ML VIAL SLOW IVP PRN ×3 (08:47→17:24)
[2018-04-21] MEDS ORDERED: Aspirin 325 mg Enteric Coated Tablet PO SCH (09:00)
[2018-04-21] MEDS ORDERED: Metoprolol Tartrate 50 MG TAB PO SCH (10:00)
[2018-04-21] MEDS: Heparin 5,000 UNITS/ML VIAL SC SCH (11:08)
[2018-04-21] MEDS ORDERED: NIFEdipine XL 60 MG TAB PO PRN (12:16)
[2018-04-21 15:02] VITALS: TEMP 96.6
[2018-04-21] MEDS ORDERED: cloNIDine 0.2 MG TAB PO SCH (15:30)
[2018-04-21 18:43] VITALS: BP 160/65
--- NOTE | 2018-04-21 23:54 | DIS ---
DATE OF ADMISSION: 04/20/2018 DATE OF DISCHARGE: 04/21/2018 ALLERGIES: NO KNOWN DRUG ALLERGIES. CHIEF COMPLAINT: Chest pain and shortness of breath. FINAL DIAGNOSES: 1. Chest pain and shortness of breath secondary to hypotensive episode during dialysis, resolved. Very mildly elevated troponin, peak 0.135, secondary to type 2 demand ischemia from above. 2. End-stage renal disease, on dialysis. 3. Hypertension. 4. Status post right below-knee amputation. PROCEDURES PERFORMED: None. LABORATORY RESULTS: Hemoglobin 10.4, hematocrit 32.0, white blood cell count 6.9. Sodium 140, potassium 4.8, chloride 107, anion gap 15, BUN 14, creatinine 7.19, glucose 68. Troponin 0.04 and 0.135 respectively. Triglycerides 93, cholesterol 85, LDL 33, HDL 33. IMAGING RESULTS: Echocardiogram, normal left ventricular systolic function with EF estimated at 55% to 60%. Mildly dilated left atrium. Normal left ventricular size. Impaired relaxation compatible with diastolic dysfunction. Mild MR. Chest x-ray showed no radiographic evidence of acute cardiopulmonary process. CONSULTATIONS: Dr. Susan Bell, of Nephrology. HOSPITAL COURSE: The patient is a very pleasant 72-year-old male with past medical history significant for end-stage renal disease, on dialysis; diabetes mellitus type 2, status post right BKA, who presented to the ER after experiencing chest pain and shortness of breath at dialysis. Apparently, the patient's blood pressure drops, and despite conservative measures, his blood pressure did not recover. He was experiencing chest pain and shortness of breath at that time and so was brought to the ER for further workup and evaluation. His chest x-ray was negative. He was admitted for chest pain rule out. His troponin did very mildly bump secondary to demand ischemia. His symptoms completely resolved as his blood pressure recovered. He has felt well. He has had no further chest pain or shortness of breath. His echocardiogram was largely unremarkable except for grade 1 diastolic dysfunction. He did have some rebound hypertension secondary to all of his medications being held for 24 hours, however, his blood pressure did trend down throughout the day with the addition of his home medications back to his regimen and a dose of p.r.n. clonidine and hydralazine. The patient reports that he did have a stress test a little less than 2 years ago at the [facility] and it was negative. PHYSICAL EXAMINATION: VITAL SIGNS: Blood pressure 160/65, pulse is 82, O2 saturation is 100% on room air, respirations 20, temperature is 96.6. GENERAL: The patient is awake and alert and comfortable. No respiratory distress. HEENT: Atraumatic and normocephalic. NECK: Supple. No lymphadenopathy. No carotid bruits. No JVD. RESPIRATORY: Regular respiratory rate and pattern. Clear to auscultation bilaterally. CARDIOVASCULAR: S1, S2. Regular rate and rhythm. No appreciable murmurs, rubs or gallops. GI: Soft, nontender. Positive bowel sounds. PERIPHERAL VASCULAR: Status post right BKA. Left shows no edema with palpable pulse. MUSCULOSKELETAL: He does have a fistula present in the left arm, otherwise no joint effusion or swelling. NEUROLOGIC: Awake and alert. The patient is nonfocal. SKIN: Warm and dry. No skin discoloration. CONDITION AT DISCHARGE: Stable. DISCHARGE MEDICATIONS: There will be no change to his home medication regimen. 1. Atorvastatin 40 mg at bedtime. 2. Diltiazem 120 mg daily. 3. Glipizide 2.5 mg p.o. q.a.m. with meals. 4. Nifedipine 60 mg p.o. daily p.r.n. 5. Ropinirole 2 mg p.o. at bedtime. 6. Acetaminophen 1000 mg p.o. q.6. 7. Aspirin 81 mg daily. 8. Vitamin D3 3000 units daily. 9. Metoprolol tartrate 50 mg p.o. b.i.d. 10. Renagel 2400 mg p.o. t.i.d. with meals. DISCHARGE DISPOSITION: Home. PLAN: Dr. Davis has increased the patient's dry weight for dialysis to prevent hypotension. He believes too much fluid was being drawn off. The patient did have some rebound hypertension, which is recovering. He will continue his home medication regimen and call his PCP if he has future high blood pressure readings. All questions answered to the patient's satisfaction. Job ID: [id number]
== END 2018-04-21 19:25 | disposition home or self-care (01) ==
LOC: ERS 07:39 → ERHOLD 10:16 → 2NO 14:54
PROVIDERS: ADMIT Family Medicine; ATTEND Family Medicine
DX: T80.89XA Other complications following infusion, transfusion and therapeutic injection, initial encounter (principal); I95.9 Hypotension, unspecified; I12.0 Hypertensive chronic kidney disease with stage 5 chronic kidney disease or end stage renal disease; N18.6 End stage renal disease; Z99.2 Dependence on renal dialysis; Z89.511 Acquired absence of right leg below knee; Z79.82 Long term (current) use of aspirin; Z79.84 Long term (current) use of oral hypoglycemic drugs; Z79.899 Other long term (current) drug therapy
CPT/HCPCS: 71045; 80048; 80053; 80061; 82550; 82553; 82962 ×2; 83690; 83880; 84484 ×2; 85007; 85025; 85027; 93005; 93306; 94760 ×2; 96374; 96376; 97139; 99285; G0378 ×2; 36415; 36416; J0360; J1644